=== PATIENT | female | born 1975 | race Caucasian/White ===

== ENCOUNTER → 2019-09-10 09:03 | Outpatient (BNVA) | payer OTHER, SELFPAY | PROVIDERS: PCP Nurse Practitioner Family; Referring Provider Nurse Practitioner Family; Visit Provider Urology | DX: R31.0 Gross hematuria (principal); N30.20 Other chronic cystitis without hematuria | CPT/HCPCS: 81001; 87086 ==

== ENCOUNTER 2019-12-25 08:09 | Outpatient (CLI) | payer OTHER, SELFPAY ==
[2019-12-25 08:55] LABS: Basophils % 0.6 %; Eosinophils # 0.1 10^3/uL (0.0-0.8); Eosinophils % 1.8 %; Hematocrit 42.6 % (37.0-47.0); Hemoglobin 13.7 g/dL (11.5-15.3); Lymphocytes # 2.1 10^3/uL (0.8-4.8); Lymphocytes % 30.9 %; Mean Corpuscular HGB Conc 32.2 g/dL (30.0-36.0); Mean Corpuscular Hemoglobin 28.1 pg (28.0-34.0); Mean Corpuscular Volume 87.5 fL (81-99); Mean Platelet Volume 10.3 fL (7.4-10.4); Monocytes # 0.4 10^3/uL (0.2-0.9); Monocytes % 5.7 %; Neutrophils # 4.1 10^3/uL (1.8-7.7); Neutrophils % 60.4 %; Nucleated Red Blood Cells % 0 %; Platelet Count 251 10^3/cmm (130-400); Red Blood Count 4.87 10^6/uL (4.1-5.3); Red Cell Distribution Width 13.6 % (12.1-15.1); White Blood Count 6.9 10^3/uL (4.0-10.0)
[2019-12-25 09:16] LABS: Alanine Aminotransferase 25 U/L (0-33); Albumin Level 4.4 g/dL (3.5-5.2); Alkaline Phosphatase 115 IU/L (35-105); Anion Gap 17.4 (5-19); Aspartate Amino Transferase 20 U/L (0-32); Blood Urea Nitrogen 12 mg/dL (6-20); Calcium 9.6 mg/dL (8.5-10.5); Carbon Dioxide 22 mmol/L (22-29); Chloride 105 mmol/L (98-107); Globulin 3.6 g/dL (1.3-4.6); Glomerular Filtration Rate 60.8 mL/min (90-130); Glucose 102 mg/dL (65-115); Osmolality Calculated 286 mOsm/kg (285-295); Potassium 4.4 mmol/L (3.5-5.1); Sodium 140 mmol/L (136-145); Thyroid Stimulating Hormone 1.43 uIU/mL (0.27-4.20); Total Bilirubin 0.2 mg/dL (0.15-1.2)
== END 2019-12-25 08:10 | disposition home or self-care (01) ==
LOC: ONCMED 08:12
PROVIDERS: PCP Nurse Practitioner Family; Visit Provider Internal Medicine Medical Oncology
DX: C50.512 Malignant neoplasm of lower-outer quadrant of left female breast (principal); Z17.0 Estrogen receptor positive status [ER+]; E03.9 Hypothyroidism, unspecified
CPT/HCPCS: 36415; 80053; 84443; 85025

== ENCOUNTER 2019-12-28 08:40 | Outpatient (CLI) | payer OTHER, SELFPAY ==
--- NOTE | 2019-12-28 19:47 | ONC FU_ITS ---
Dr. He Patient Follow-Up Note Patient: Priyanka Cali Unit #: [id number]: 1975 Dicatated By: Christopher He M.D.Date of Visit:Dec 28, 2019 Onc Med Follow-up/Prog Note Chief Complaint: Breast cancer. History of Present Illness: This is a 44 year-old woman with multifocal grade 3 invasive ductal carcinoma of the left breast, stage IIA (pT2, pN0, M0), ER/OK positive and HER-2/parish negative. In July 2018 she became aware of a lump in the lateral aspect of her left breast. She did have it evaluated immediately due to a strong family history of breast cancer, including her mother and maternal grandmother. Her diagnostic mammogram on 07/29/2018 showed only a very subtle suggestion of a 12 mm nodule immediately in the area of the palpable nodule. A nodule in the midportion of the right breast superiorly appeared stable compared to previous study from 2011. Ultrasound of the left breast showed an irregular hypoechoic mass at the 4:00 position 6 cm from the nipple. It measured 22 mm. There were no suspicious or enlarged lymph nodes noted in the left axilla. Ultrasound guided needle biopsy of the left breast mass on 08/14/2018 showed grade 3 invasive ductal carcinoma. The tumor was found to be are positive at 92% and. Positive at 41%. There was negative for overexpression of HER-2/parish, 1+ by IHC. She then had further evaluation with breast MRI. It reportedly showed an additional enhancing mass measuring 0.8 cm located 3.8 cm posterior to the known lesion at 4:00. There was additional finding of the right breast open up her inner quadrant mass with a small satellite lesion, also felt to be suspicious. A second ultrasound-guided biopsy of the left breast on 09/03/2018 showed invasive ductal carcinoma with focal micropapillary features, grade 1. It was ER positive at 99% and OK positive at 95%. It also was negative for overexpression of HER-2/parish, 1+ by IHC. Biopsy of the right breast mass showed fibroadenoma. On 09/08/2018 she underwent bilateral mastectomy with left axillary sentinel lymph node biopsy and immediate bilateral breast reconstruction. Pathology showed a 2.2 x 1.5 x 1.3 cm poorly defined mass located in the lower outer quadrant of the left breast. The mass was noted to contain a metal biopsy clip. Approximately 2.5 cm deep to the mass was a 2.5 x 1.5 x 0.5 cm area of dense fibrous tissue which contained a possible previous biopsy cavity. The 2.2 cm mass showed grade 3 invasive ductal carcinoma. The second biopsy site showed no residual invasive carcinoma. The left axillary sentinel lymph node biopsy shows no involvement in 4 lymph nodes. The right breast showed evidence of previous biopsy site with residual fibroadenoma, but no evidence of in situ or invasive carcinoma. I had seen her initially on 09/26/2018 regard to recommendations for adjuvant therapy. She then had further evaluation with Oncotype DX. It showed a recurrence score of 16, low risk, with a predicted risk of distant recurrence of 4% at 9 years with adjuvant hormonal therapy. The absolute benefit with adjuvant chemotherapy was predicted to be less than 1% based on results of the TAILORx trial. As such, adjuvant chemotherapy was not recommended. At that time I reviewed the options for adjuvant hormonal therapy including tamoxifen versus an aromatase inhibitor in combination with an LHRH analog. She opted for the latter. She then began treatment with Zoladex 3.6 mg monthly on 12/12/2018, and she started anastrozole 1 mg daily on 01/05/2019. She received a second injection of Zoladex on 01/12/2019. During this time she had consulted with her qc manager and in February 2019 she underwent hysterectomy with bilateral salpingo-oophorectomy. She underwent revision of her breast scar in March. At her follow-up visit on 03/17/2019 I did have her start venlafaxine for hot flashes. She continued her adjuvant hormonal therapy with anastrozole 1 mg daily. She is seen for a scheduled visit. Since her last visit she has seen a line maintenance supervisor about the skin eruption in her facial area, and it was apparently found to be caused by her blood pressure medication (chlorthalidone). It has improved significantly since she has been off the medication. She has been feeling good generally. She has good energy and activity tolerance. She is working full-time. Her ECOG score is 0. She has not had fever. She has had more sweating, but her hot flashes have improved. She has allergy related sinus symptoms and those are being managed adequately with [id number] medication. She does have some associated cough. She has no shortness of breath or chest pain. She has no GI or complaints. She says her hands have been aching a little. She has no other joint or bone pain. She has no focal neurologic symptoms. Medications: Anastrozole 1 Tablet (of 1 mg) Oral daily, Chlorthalidone 1 Tablet (of 25 mg) Oral daily, Levothyroxine Sodium 1 Tablet (of 88 mcg) Oral daily, metFORMIN HCl 1 Tablet (of 500 mg) Oral daily, Nitrofurantoin Monohyd Macro 1 Capsule (of 100 mg) Oral b.i.d., Singulair 1 Tablet (of 10 mg) Oral daily, Venlafaxine HCl ER 1 Capsule (of 150 mg) Capsule SR 24 HR Oral daily Allergies: Dicloxacillin Sodium and egg yolk. Review of Systems: Constitutional - She is feeling good. Her energy is good and she has normal activit. She is working full-time. Her appetite is good and her weight is up about 20 pounds. No fevers. Her hot flashes are improved but she continues to have sweating episodes. ECOG score is 0, ENMT - She has sinus congestion/drainage. No mouth sores. No sore throat or difficulty swallowing, Hematologic/Lymphatic - No abnormal bruising or bleeding, Respiratory - No shortness of breath. No cough. No pleuritic pain or hemoptysis, Cardiovascular - No angina pain. No palpitations, Gastrointestinal - No nausea or vomiting. No heartburn or acid reflux. No diarrhea or constipation. No blood in the stool or black stools, Genitourinary (F) - No dysuria or hematuria. No urinary frequency. No urgency or incontinence, Musculoskeletal - Her hands are a little bit achy. She has no other joint or bone pain, Integumentary - No skin complications, Neurologic - No headache or dizziness. No numbness or tingling. No other focal neurologic symptoms, Psychiatric - No anxiety or depression. No insomnia. Vital Signs: Performed on Dec 28, 2019 08:46 Height - 64.50 in Weight - 223.2 lbs (HIGH) BSA - 2.06 sq.m BMI - 37.72 (HIGH) Temperature - 97.2 F (LOW) Pulse - 87 /min Respiration - 18 /min BP - 133/96 mm(hg) O2 Sat - 97 % Pain - 0 Physical Examination: Constitutional - She looks good generally, Eyes - Sclerae nonicteric.Conjunctivae clear, ENMT - No lesions noted in the oral cavity, Hematologic/Lymphatic - No cervical, clavicular, or axillary adenopathy, Respiratory - Lungs are clear with good air movement bilaterally, Cardiovascular - Heart rhythm is regular. There is no murmur, gallop, or rub noted, Breasts - Her reconstruction incisions have healed. There are no chest wall lesions noted. There is no axillary adenopathy, Abdomen - Soft. Liver and spleen are not enlarged. There is no abdominal mass or ascites noted and there is no inguinal adenopathy, Extremities - No edema, Neurologic - No focal neurologic deficits noted. Lab/Imaging: CBC shows hemoglobin 13.7 g, white blood cell count 6900, and platelet count 251,000. Comprehensive metabolic profile is unremarkable. TSH is normal at 1.43 ???IU/mL. Impression: 1. Patient with multifocal grade 3 invasive ductal carcinoma of the left breast, stage IIA (pT2, pN0, M0), ER/OK positive and HER-2/parish negative. Her Oncotype DX was low risk with recurrence score 16. The absoulte benefit with adjuvant chemotherapy was predicted to be < 1%. 2. She underwent bilateral mastectomy with left axillary sentinel lymph node biopsy and immediate bilateral breast reconstruction on 09/08/2018. 3. She began adjuvant hormonal therapy with Zoladex in December, and she started anastrozole 1 mg daily on 01/05/2019. 4. She undewent hysterectomy with bilateral oophorectomy in February 2019. 5. She has a strong family history of breast cancer, but her BRCA testing was reportedly negative. Her other medical illnesses include: 6. Hypothyroidism. 7. Mild asthma, exercise-induced. She had developed significant hot flashes/sweating following her hysterectomy, but those symptoms have improved with venlafaxine. She has been tolerating the anastrozole with no significant adverse effects. Overall, she appears to be doing well clinically with no evidence of recurrence of the breast cancer. Plan: She continues adjuvant hormonal therapy with anastrozole 1 mg daily. I will see her again in 6 months. Signed By: Christopher He M.D. <<Signature on File>>
== END 2019-12-28 08:41 | disposition home or self-care (01) ==
LOC: ONCMED 08:41
PROVIDERS: PCP Nurse Practitioner Family; Visit Provider Internal Medicine Medical Oncology
DX: C50.512 Malignant neoplasm of lower-outer quadrant of left female breast (principal); Z17.0 Estrogen receptor positive status [ER+]; E03.9 Hypothyroidism, unspecified; J45.990 Exercise induced bronchospasm; Z90.13 Acquired absence of bilateral breasts and nipples; Z79.811 Long term (current) use of aromatase inhibitors; Z90.710 Acquired absence of both cervix and uterus
CPT/HCPCS: 99214

== ENCOUNTER → 2020-03-08 08:24 | Outpatient (BNVA) | payer OTHER, SELFPAY | PROVIDERS: PCP Nurse Practitioner Family; Visit Provider Urology | DX: N30.20 Other chronic cystitis without hematuria (principal) | CPT/HCPCS: 81001 ==

== ENCOUNTER 2020-06-27 15:25 | Outpatient (CLI) | payer OTHER, SELFPAY ==
[2020-06-27 16:06] LABS: Basophils # 0.1 10^3/uL (0.0-0.1); Basophils % 0.8 %; Eosinophils # 0.1 10^3/uL (0.0-0.8); Eosinophils % 1.1 %; Hematocrit 46.1 % (37.0-47.0); Hemoglobin 14.9 g/dL (11.5-15.3); Lymphocytes # 2.6 10^3/uL (0.8-4.8); Lymphocytes % 32.7 %; Mean Corpuscular HGB Conc 32.3 g/dL (30.0-36.0); Mean Corpuscular Hemoglobin 28.3 pg (28.0-34.0); Mean Corpuscular Volume 87.5 fL (81-99); Mean Platelet Volume 10.7 fL (7.4-10.4); Monocytes # 0.5 10^3/uL (0.2-0.9); Monocytes % 5.8 %; Neutrophils # 4.67 10^3/uL (1.8-7.7); Neutrophils % 59.3 %; Nucleated Red Blood Cells % 0 %; Platelet Count 307 10^3/cmm (130-400); Red Blood Count 5.27 10^6/uL (4.1-5.3); Red Cell Distribution Width 13.3 % (12.1-15.1); White Blood Count 7.9 10^3/uL (4.0-10.0)
[2020-06-27 16:28] LABS: Alanine Aminotransferase 28 U/L (0-33); Albumin Level 4.8 g/dL (3.5-5.2); Alkaline Phosphatase 127 IU/L (35-105); Anion Gap 19.1 (5-19); Aspartate Amino Transferase 23 U/L (0-32); Blood Urea Nitrogen 19 mg/dL (6-20); Calcium 10.1 mg/dL (8.5-10.5); Carbon Dioxide 24 mmol/L (22-29); Chloride 98 mmol/L (98-107); Globulin 3.4 g/dL (1.3-4.6); Glucose 87 mg/dL (65-115); Osmolality Calculated 286 mOsm/kg (285-295); Potassium 4.1 mmol/L (3.5-5.1); Sodium 137 mmol/L (136-145); Total Bilirubin 0.3 mg/dL (0.15-1.2); Total Protein 8.2 g/dL (6.6-8.7)
== END 2020-06-27 15:26 | disposition home or self-care (01) ==
LOC: ONCMED 15:27
PROVIDERS: PCP Nurse Practitioner Family; Visit Provider Internal Medicine Medical Oncology
DX: C50.512 Malignant neoplasm of lower-outer quadrant of left female breast (principal); Z17.0 Estrogen receptor positive status [ER+]
CPT/HCPCS: 36415; 80053; 85025

== ENCOUNTER 2020-06-28 06:16 | Outpatient (CLI) | payer OTHER, SELFPAY ==
--- NOTE | 2020-07-02 09:58 | ONC FU_ITS ---
Dr. He Patient Follow-Up Note Patient: Priyanka Cali Unit #: [id number]: 1975 Dicatated By: Christopher He M.D.Date of Visit:Jun 28, 2020 Onc Med Follow-up/Prog Note Chief Complaint: Breast cancer. History of Present Illness: This is a 45 year-old woman with multifocal grade 3 invasive ductal carcinoma of the left breast, stage IIA (pT2, pN0, M0), ER/NJ positive and HER-2/parish negative. In July 2018 she became aware of a lump in the lateral aspect of her left breast. She did have it evaluated immediately due to a strong family history of breast cancer, including her mother and maternal grandmother. Her diagnostic mammogram on 07/29/2018 showed only a very subtle suggestion of a 12 mm nodule immediately in the area of the palpable nodule. A nodule in the midportion of the right breast superiorly appeared stable compared to previous study from 2011. Ultrasound of the left breast showed an irregular hypoechoic mass at the 4:00 position 6 cm from the nipple. It measured 22 mm. There were no suspicious or enlarged lymph nodes noted in the left axilla. Ultrasound guided needle biopsy of the left breast mass on 08/14/2018 showed grade 3 invasive ductal carcinoma. The tumor was found to be are positive at 92% and. Positive at 41%. There was negative for overexpression of HER-2/parish, 1+ by IHC. She then had further evaluation with breast MRI. It reportedly showed an additional enhancing mass measuring 0.8 cm located 3.8 cm posterior to the known lesion at 4:00. There was additional finding of the right breast open up her inner quadrant mass with a small satellite lesion, also felt to be suspicious. A second ultrasound-guided biopsy of the left breast on 09/03/2018 showed invasive ductal carcinoma with focal micropapillary features, grade 1. It was ER positive at 99% and NJ positive at 95%. It also was negative for overexpression of HER-2/parish, 1+ by IHC. Biopsy of the right breast mass showed fibroadenoma. On 09/08/2018 she underwent bilateral mastectomy with left axillary sentinel lymph node biopsy and immediate bilateral breast reconstruction. Pathology showed a 2.2 x 1.5 x 1.3 cm poorly defined mass located in the lower outer quadrant of the left breast. The mass was noted to contain a metal biopsy clip. Approximately 2.5 cm deep to the mass was a 2.5 x 1.5 x 0.5 cm area of dense fibrous tissue which contained a possible previous biopsy cavity. The 2.2 cm mass showed grade 3 invasive ductal carcinoma. The second biopsy site showed no residual invasive carcinoma. The left axillary sentinel lymph node biopsy shows no involvement in 4 lymph nodes. The right breast showed evidence of previous biopsy site with residual fibroadenoma, but no evidence of in situ or invasive carcinoma. I had seen her initially on 09/26/2018 regard to recommendations for adjuvant therapy. She then had further evaluation with Oncotype DX. It showed a recurrence score of 16, low risk, with a predicted risk of distant recurrence of 4% at 9 years with adjuvant hormonal therapy. The absolute benefit with adjuvant chemotherapy was predicted to be less than 1% based on results of the TAILORx trial. As such, adjuvant chemotherapy was not recommended. At that time I reviewed the options for adjuvant hormonal therapy including tamoxifen versus an aromatase inhibitor in combination with an LHRH analog. She opted for the latter. She then began treatment with Zoladex 3.6 mg monthly on 12/12/2018, and she started anastrozole 1 mg daily on 01/05/2019. She received a second injection of Zoladex on 01/12/2019. During this time she had consulted with her head of partner development and in February 2019 she underwent hysterectomy with bilateral salpingo-oophorectomy. She underwent revision of her breast scar in March. At her follow-up visit on 03/17/2019 I did have her start venlafaxine for hot flashes. She continued her adjuvant hormonal therapy with anastrozole 1 mg daily. She is seen for a scheduled visit. She has not been feeling all that good generally, but last week she did start on a diet and since then she has felt much better. Her energy has sometimes been low, but she still has normal activity. She has good appetite. She has not had fever. During the past month her hot flashes for some reason have gotten worse. She has no shortness of breath, cough, or chest pain. Her acid reflux symptoms have improved on the new diet. She still has some postprandial diarrhea. She has no complaints. She has no significant joint or bone pain. She does not complain of headache or dizziness. She says her feet tingle when she first gets up and she also complains that her feet tend to stay cold. Medications: Anastrozole 1 Tablet (of 1 mg) Oral daily, Chlorthalidone 1 Tablet (of 25 mg) Oral daily, Levothyroxine Sodium 1 Tablet (of 88 mcg) Oral daily, metFORMIN HCl 1 Tablet (of 500 mg) Oral daily, Nitrofurantoin Monohyd Macro 1 Capsule (of 100 mg) Oral b.i.d., Singulair 1 Tablet (of 10 mg) Oral daily, Venlafaxine HCl ER 1 Capsule (of 150 mg) Capsule SR 24 HR Oral daily Allergies: Dicloxacillin Sodium and egg yolk. Review of Systems: Constitutional - She says her energy is normal to low. She has normal activity. She has good appetite. She started a diet last week and since then she has felt somewhat better generally. No fever or night sweats. During the past month her hot flashes have gotten worse. ECOG score is 0, ENMT - She was having allergy related sinus symptoms, but lately that has been better. No mouth sores. No sore throat or difficulty swallowing, Hematologic/Lymphatic - She has easy bruising, Respiratory - No shortness of breath. No cough. No pleuritic pain or hemoptysis, Cardiovascular - No angina pain. No palpitations, Gastrointestinal - No nausea or vomiting. She was having a lot of heartburn, but that has improved with the diet. She tends to have postprandial diarrhea. No blood in the stool or black stools, Genitourinary (F) - No dysuria or hematuria. No urinary frequency. No urgency or incontinence, Musculoskeletal - No joint or bone pain, Integumentary - No skin rash, Neurologic - No headache or dizziness. Her feet tingle when she first gets up out of bed. No other focal neurologic symptoms, Psychiatric - No anxiety or depression. No insomnia. Vital Signs: Performed on Jun 28, 2020 09:27 Height - 64.50 in Weight - 214.0 lbs (LOW) BSA - 2.02 sq.m BMI - 36.17 (HIGH) Temperature - 95.3 F (LOW) Pulse - 97 /min Respiration - 16 /min BP - 109/93 mm(hg) O2 Sat - 97 % Pain - 0 Physical Examination: Constitutional - She looks good generally, Eyes - Sclerae nonicteric. Conjunctivae clear, ENMT - No lesions noted in the oral cavity, Hematologic/Lymphatic - No cervical, clavicular, or axillary adenopathy, Respiratory - Lungs are clear with good air movement bilaterally, Cardiovascular - Heart rhythm is regular. There is no murmur, gallop, or rub noted, Abdomen - Soft. Liver and spleen are not enlarged. There is no abdominal mass or ascites noted and there is no inguinal adenopathy, Extremities - No edema, Neurologic - No focal neurologic deficits noted. Lab/Imaging: CBC shows hemoglobin 14.9 g, white blood cell count 7900, and platelet count 307,000. Comprehensive metabolic profile is unremarkable. Impression: 1. Patient with multifocal grade 3 invasive ductal carcinoma of the left breast, stage IIA (pT2, pN0, M0), ER/NJ positive and HER-2/parish negative. Her Oncotype DX was low risk with recurrence score 16. The absoulte benefit with adjuvant chemotherapy was predicted to be < 1%. 2. She underwent bilateral mastectomy with left axillary sentinel lymph node biopsy and immediate bilateral breast reconstruction on 09/08/2018. 3. She began adjuvant hormonal therapy with Zoladex in December, and she started anastrozole 1 mg daily on 01/05/2019. 4. She undewent hysterectomy with bilateral oophorectomy in February 2019. 5. She has a strong family history of breast cancer, but her BRCA testing was reportedly negative. Her other medical illnesses include: 6. Hypothyroidism. 7. Mild asthma, exercise-induced. She had developed significant hot flashes/sweating following her hysterectomy, but those symptoms had improved with venlafaxine. For some reason, hot flashes have recently worsened again. She has otherwise been tolerating the anastrozole well, and overall she has been doing well clinically. Plan: She will continue adjuvant hormonal therapy with anastrozole 1 mg daily. For now she will continue the venlafaxine at the same dosage. I will see her again in 6 months. Signed By: Christohper He M.D. <<Signature on File>>
== END 2020-06-28 06:17 | disposition home or self-care (01) ==
LOC: ONCMED 06:18
PROVIDERS: PCP Nurse Practitioner Family; Visit Provider Internal Medicine Medical Oncology
DX: C50.512 Malignant neoplasm of lower-outer quadrant of left female breast (principal); Z17.0 Estrogen receptor positive status [ER+]; Z90.13 Acquired absence of bilateral breasts and nipples; Z79.811 Long term (current) use of aromatase inhibitors; E03.9 Hypothyroidism, unspecified; J45.909 Unspecified asthma, uncomplicated; Z80.3 Family history of malignant neoplasm of breast
CPT/HCPCS: 99214

== ENCOUNTER → 2020-09-17 12:10 | Outpatient (BNVA) | payer OTHER, SELFPAY | PROVIDERS: PCP Nurse Practitioner Family; Visit Provider Surgery | DX: Z01.812 Encounter for preprocedural laboratory examination (principal); Z20.822 Contact with and (suspected) exposure to COVID-19 | CPT/HCPCS: 87635 ==

== ENCOUNTER 2020-09-22 08:35 | Day surgery (SDC) | payer OTHER, SELFPAY ==
[2020-09-20 09:56] VITALS: BMI 36.0
[2020-09-22 08:51] VITALS: BP 129/101; PULSE 102; RESP 18; TEMP 36.1; O2SAT 99
[2020-09-22] MEDS: sodium chloride 0.9% 1,000 ML 30 ML IV (09:09)
[2020-09-22 09:15] LABS: Glucose Point of Care 101 mg/dL (70-110)
--- NOTE | 2020-09-22 09:17 | ANES.PREANE2 ---
Pre-Anesthetic Assessment Pre-Anesthetic Assessment: Height/Weight: Height 1.63 m Weight 95.254 kg Temp Pulse Resp BP Pulse Ox 97 F L 102 H 18 129/101 99 09/22/20 08:51 09/22/20 08:51 09/22/20 08:51 09/22/20 08:51 09/22/20 08:51 Preop Diagnosis: abdominal pain, diarrhea Proposed Procedure: Operation Date: 09/22/20 09:30 Proposed Procedures p Colonoscopy 09396 K80.10(Not Applicable) - Pepe Hopkins MD Familial anesthetic complications: nausea, itchy following general anesthetic Was Beta Justine taken within 24 hours: N/A Was Clonidine taken within 24 hours: N/A Last intake: Intake Last Liquid Date 09/21/20 Last Liquid Time 22:00 Last Solid Date 09/20/20 Last Solid Time 20:00 Social: Social History: No alcohol and No tobacco Exam: Pre-Anes Outpt Exam: alert, oriented x 3, clear to auscultation bilaterally and regular rate & rhythm Airway: Submandibular: WNL Cervical ROM: WNL MP: 1 Dentition: Full Pulmonary: Pulmonary: Asthma (exercise induced) CV/HEM: CV/HEM: HTN : : None reported Hepatic: Hepatic: Hepatitis (at 12 but resolved now) GI: GI: GERD (burping at night) Metabolic: Metabolic: Thyroid Musc/skel: Musc/skel: None reported Neuropsych: Neuropsych: VU (a couple times a year migraine usually stressed induced ) Anesthetic Plan: ASA status: 2 Anesthesia: MAC Risk of > 500 ml blood loss (7ml/kg in children): No Meds/Allergies Current Medications: Current Medications Generic Name Dose Route Start Last Admin Trade Name Freq PRN Reason Stop Dose Admin Sodium Chloride 1,000 mls @ 30 ml s/hr 09/22/20 08:45 09/22/20 09:09 Sodium Chloride 0.9% IV 09/23/20 08:44 30 mls/hr .Q24H JEREMIAH Administration PFSH Anesthesia PFSH: Medical History Chronic cystitis Gross hematuria Hx of breast cancer Surgical History H/O: hysterectomy S/P mastectomy, bilateral Family History Mother Cancer Breast Father Cancer Breast, Leukemia, colon, Hypertension Social History Smoking and tobacco status: never smoked Alcohol intake: current Adopted: No Caregiver/support person: No Lives independently: Yes Marital status: History of recent travel: No Current gender identity: Female Data Anesthesia Other Labs: Laboratory Results - last 48 hr 09/22/20 09:09 POC Glucose 101 Cardiac Studies: No Data to Display
--- NOTE | 2020-09-22 10:00 | ANE.PACU2 ---
Inpatient post-anesthesia follow up: Airway intact: Yes Vital signs: Temperature 97 F Pulse Rate 102 Respiratory Rate 18 Blood Pressure 129/101 Pulse Oximetry 99 Oxygen Delivery Me thod Room Air Oxygen Flow Rate Fraction of Inspir ed Oxygen Hydration adequate: Yes Nausea and vomiting: No Pain level: 1 Mental status: Baseline
[2020-09-22 10:01] VITALS: BP 139/82; PULSE 85; RESP 16; TEMP 36.2; O2SAT 97
--- NOTE | 2020-09-22 10:05 | W.PM.OPSUD ---
Surgery/Procedure H&P Update DATE OF PROCEDURE: September 22, 2020 DATE H&P PERFORMED: 09/13/20 H&P UPDATE INFORMATION: No changes to prior documentation PREOP DIAGNOSIS: abdominal pain, diarrhea, family history of colon polyps PLANNED PROCEDURE: Operation Date: 09/22/20 09:30 Proposed Procedures p Colonoscopy 40835 K80.10(Not Applicable) - Pepe Hopkins MD
--- NOTE | 2020-09-22 14:06 | ANE.PACU2 ---
Inpatient post-anesthesia follow up: Airway intact: Yes Vital signs: Temperature 97.1 F Pulse Rate 85 Respiratory Rate 16 Blood Pressure 139/82 Pulse Oximetry 97 Oxygen Delivery Me thod Room Air Oxygen Flow Rate Fraction of Inspir ed Oxygen Hydration adequate: Yes Nausea and vomiting: No Pain level: 1 Mental status: Baseline
== END 2020-09-22 10:28 | disposition home or self-care (01) ==
PROVIDERS: PCP Nurse Practitioner Family; Visit Provider Surgery
PROC: 0DJD8ZZ Inspection of Lower Intestinal Tract, Via Natural or Artificial Opening Endoscopic (ICD-10-PCS; CPT 45378; principal; 2020-09-22 09:30)
DX: R19.7 Diarrhea, unspecified (principal); R10.32 Left lower quadrant pain; K57.30 Diverticulosis of large intestine without perforation or abscess without bleeding; K64.8 Other hemorrhoids; I10 Essential (primary) hypertension; K21.9 Gastro-esophageal reflux disease without esophagitis; Z85.3 Personal history of malignant neoplasm of breast
CPT/HCPCS: 12345; 36416; 45378; 82962; 96360; J2704; J7030

== ENCOUNTER 2020-11-15 15:33 | Emergency (ER) | payer OTHER, SELFPAY ==
[2020-11-15 15:36] VITALS: BP 123/93; PULSE 90; RESP 17; TEMP 36.6; O2SAT 99; BMI 36.1
--- NOTE | 2020-11-15 15:50 | ED_ITS ---
HPI - Abdominal Pain General: Chief Complaint: Abdominal Pain Stated Complaint: Stomach Pains/Nausea Time Seen by Provider: 11/15/20 15:36 History of Present Illness: HPI narrative: 45-year-old female presents emergency room with complaint of abdominal discomfort.On the left side. 2 months ago she had a EGD and colonoscopy for abdominal pain she does have early diverticulosis but no evidence of diverticuli. She has had recurrent chronic cystitis as well. Patient denies any recent diarrhea hematochezia no melena or hematemesis. She not had any fever sweats or chills no dysuria urgency or frequency. MD elicited complaint: abdominal pain Pertinent past history: none Onset (ago): hour(s) Pain Consistency: constant Location: LUQ Severity: moderate Quality: cramping Radiation: none Migration to: no migration Exacerbating factors: nothing Relieving factors: nothing Associated Symptoms: Reports GI cramping; Denies anorexia, belching, bloating, change in bowel habits, change in stool character, chills, coffee ground emesis, constipation, diarrhea, dyspepsia, dysuria, excessive flatus, fever(s), heartburn, hematochezia, hematuria, hematemesis, fecal incontinence, loose stools, melena, nausea, poor appetite, syncope and vomiting Review of Systems Const: Denies: fever(s) or chills ENMT: Denies: throat pain, ear or mastoid pain, nasal discharge or nasal congestion Card: Denies: syncope Resp: Denies: dyspnea, productive cough or non-productive cough GI: Reports: GI cramping; Denies: nausea, vomiting, hematemesis, coffee ground emesis, heartburn, diarrhea, constipation, bloating, belching, excessive flatus, fecal incontinence, change in bowel habits, change in stool character, hematochezia or melena : Denies: dysuria or hematuria Skin/Breast: Denies: rash or pruritus PFSH ED PFSH: Medical History (Updated 11/15/20 @ 17:46 by Walt Escobar DO) Chronic cystitis Gross hematuria Hx of breast cancer Surgical History H/O: hysterectomy S/P mastectomy, bilateral Family History Mother Cancer Breast Father Cancer Breast, Leukemia, colon, Hypertension Social History Smoking and tobacco status: never smoked Alcohol intake: current Adopted: No Caregiver/support person: No Lives independently: Yes Marital status: History of recent travel: No Current gender identity: Female Physical Exam Const: COMMON NORMALS: no acute distress GENERAL APPEARANCE: cooperative and comfortable ORIENTATION/CONSCIOUSNESS: Yes awake, Yes oriented to person, Yes oriented to place and Yes oriented to time HENMT: COMMON NORMALS: normocephalic, atraumatic and hearing grossly normal bilaterally HEAD & SCALP: normocephalic and atraumatic Neck/C-Spine: COMMON NORMALS: no JVD Resp: COMMON NORMALS: normal respiratory effort, No retractions, No use of accessory muscles and clear to auscultation bilaterally AUSCULTATION: clear to auscultation bilaterally Cardio: COMMON NORMALS: no JVD, regular rate, regular rhythm and No murmurs present (Cardio) RATE: regular rate RHYTHM: regular rhythm GI: COMMON NORMALS: Soft to palpation and No hepatosplenomegaly present AUSCULTATION: Yes normoactive bowel sounds PALPATION: Yes Soft to palpation, No Tenderness to palpation present (GI), No Guarding due to palpation present (GI) and Yes No hepatosplenomegaly present Extremity: COMMON NORMALS: normal to inspection, capillary refill normal, no clubbing, cyanosis or edema, no calf tenderness and no pedal edema Neuro: SENSORIUM/ORIENTATION: Yes oriented to person, Yes oriented to place and Yes oriented to time Skin: COMMON NORMALS: no rashes or lesions noted GENERAL SKIN EXAM: no rashes or lesions noted Course Vital Signs: Vital signs: Vital Signs Temperature 97.9 F 11/15/20 15:36 Pulse Rate 82 11/15/20 18:09 Respiratory Rate 16 11/15/20 18:09 Blood Pressure 114/78 11/15/20 18:09 Pulse Oximetry 99 11/15/20 18:09 MDM - Abdominal Pain MDM Narrative: Medical decision making narrative: Based on exam we will go ahead and treat her for diverticulitis. Cipro and Flagyl pain medications antiemetics recheck if not improving Lab Data: Labs: Lab Results 11/15/20 11/15/20 11/15/20 Range/Units 16:18 16:18 16:18 WBC 8.3 (4.0-10.0) 10^3/ uL RBC 4.61 (4.1-5.3) 10^6/u L Hgb 13.2 (11.5-15.3) g/dL Hct 41.3 (37.0-47.0) % MCV 89.6 (81-99) fL MCH 28.6 (28.0-34.0) pg MCHC 32.0 (30.0-36.0) g/dL RDW 13.7 (12.1-15.1) % Plt Count 272 (130-400) 10^3/c mm MPV 10.3 (7.4-10.4) fL Neut % (Auto) 54.9 % Lymph % (Auto) 37.3 % [place] % (Auto) 5.3 % Eos % (Auto) 1.2 % Baso % (Auto) 0.7 % Neut # (Auto) 4.55 (1.8-7.7) 10^3/u L Lymph # (Auto) 3.1 (0.8-4.8) 10^3/u L [place] # (Auto) 0.4 (0.2-0.9) 10^3/u L Eos # (Auto) 0.1 (0.0-0.8) 10^3/u L Baso # (Auto) 0.1 (0.0-0.1) 10^3/u L Nucleated RBC % (a uto) 0 % Nucleated RBCs # 0.0 /100WBC Sodium 141 (136-145) mmol/L Potassium 4.1 (3.5-5.1) mmol/L Chloride 103 (98-107) mmol/L Carbon Dioxide 26 (22-29) mmol/L Anion Gap 16.1 (5-19) BUN 18 (6-20) mg/dL Creatinine 1.3 H (0.5-0.9) mg/dL GFR Calculation 44.7 L (90-130) mL/min Glucose 85 (65-115) mg/dL Calculated Osmolal ity 293 (285-295) mOsm/k g Calcium 9.0 (8.5-10.5) mg/dL Total Bilirubin 0.2 (0.15-1.2) mg/dL AST 18 (0-32) U/L ALT 21 (0-33) U/L Alkaline Phosphata se 110 H (35-105) IU/L Total Protein 6.9 (6.6-8.7) g/dL Albumin 4.2 (3.5-5.2) g/dL Globulin 2.7 (1.3-4.6) g/dL Lipase 42 (13-60) U/L Urine Color Yellow (Yellow) Urine Appearance Clear (CLEAR) Urine pH 5 (5-7) Ur Specific Gravit y 1.020 (1.005-1.030) Urine Protein Neg (Negative) Urine Glucose (UA) Norm (Normal) Urine Ketones Negative (Negative) Urine Blood Neg (Negative) Urine Nitrate Negative (Negative) Urine Bilirubin Neg (Negative) Urine Urobilinogen Norm (Negative) mg/dL Ur Leukocyte Ana ase Negative (Negative) Discharge Plan Discharge Patient Disposition: Home Clinical Impression: Diverticulitis Condition: Stable Prescriptions: New hydrocodone-acetaminophen 5-325 mg tablet 1 tab PO Q6H PRN (Reason: pain) Qty: 15 RF: 0 Zofran 4 mg tablet 4 mg PO Q6H PRN (Reason: nausea and vomiting) Qty: 20 RF: 0 ciprofloxacin HCl 500 mg tablet 500 mg PO BID Qty: 20 RF: 0 Flagyl 500 mg tablet 500 mg PO BID 7 Days Qty: 14 RF: 0 No Action anastrozole 1 mg tablet 1 mg PO QAM RF: 0 levothyroxine 88 mcg tablet 88 mcg PO QAM RF: 0 spironolactone 100 mg tablet 100 mg PO QAM RF: 0 venlafaxine 150 mg capsule,extended release 24hr 150 mg PO QAM RF: 0 Aleve 220 mg Tablet 440 mg PO PRN RF: 0 Discharge Orders: Discharge ED (Routine); Ordered 11/15/20 Ordered By: Walt Escobar Referrals: Surekha Arauz FNP [Primary Care Provider] - Patient Instructions: Opioid Safety Coding Level of Care Code ED [employer] Exam Comprehensive
--- NOTE | 2020-11-15 15:56 | PC.PHAR ---
pt states she hasnt taken metformin for a month-ext med history shows last filled on 09/06/20 90d/s
[2020-11-15 16:25] LABS: Basophils # 0.1 10^3/uL (0.0-0.1); Basophils % 0.7 %; Eosinophils # 0.1 10^3/uL (0.0-0.8); Eosinophils % 1.2 %; Hematocrit 41.3 % (37.0-47.0); Hemoglobin 13.2 g/dL (11.5-15.3); Lymphocytes # 3.1 10^3/uL (0.8-4.8); Lymphocytes % 37.3 %; Mean Corpuscular Hemoglobin 28.6 pg (28.0-34.0); Mean Corpuscular Volume 89.6 fL (81-99); Mean Platelet Volume 10.3 fL (7.4-10.4); Monocytes # 0.4 10^3/uL (0.2-0.9); Monocytes % 5.3 %; Neutrophils # 4.55 10^3/uL (1.8-7.7); Neutrophils % 54.9 %; Nucleated Red Blood Cells % 0 %; Platelet Count 272 10^3/cmm (130-400); Red Blood Count 4.61 10^6/uL (4.1-5.3); Red Cell Distribution Width 13.7 % (12.1-15.1); White Blood Count 8.3 10^3/uL (4.0-10.0)
[2020-11-15 16:34] LABS: Add Urine Microscopic? NO; Charge for UA Resulting for Rev
[2020-11-15 16:38] LABS: Urine Appearance Clear (CLEAR); Urine Color Yellow (Yellow)
[2020-11-15 16:39] LABS: Bilirubin Urine Neg (Negative); Blood Urine Neg (Negative); Glucose Urine UA Norm (Normal); Ketones Urine Negative (Negative); Leukocyte Esterase Urine Negative (Negative); Nitrate Urine Negative (Negative); Protein Urine Neg (Negative); Urobilinogen Urine Norm (Negative); pH Urine 5 (5-7)
[2020-11-15 17:24] LABS: Alanine Aminotransferase 21 U/L (0-33); Albumin Level 4.2 g/dL (3.5-5.2); Alkaline Phosphatase 110 IU/L (35-105); Anion Gap 16.1 (5-19); Aspartate Amino Transferase 18 U/L (0-32); Blood Urea Nitrogen 18 mg/dL (6-20); Carbon Dioxide 26 mmol/L (22-29); Chloride 103 mmol/L (98-107); Globulin 2.7 g/dL (1.3-4.6); Glomerular Filtration Rate 44.7 mL/min (90-130); Glucose 85 mg/dL (65-115); Lipase 42 U/L (13-60); Osmolality Calculated 293 mOsm/kg (285-295); Potassium 4.1 mmol/L (3.5-5.1); Sodium 141 mmol/L (136-145); Total Bilirubin 0.2 mg/dL (0.15-1.2); Total Protein 6.9 g/dL (6.6-8.7)
[2020-11-15 18:09] VITALS: BP 114/78; PULSE 82; RESP 16; O2SAT 99
== END 2020-11-15 18:10 | disposition home or self-care (01) ==
PROVIDERS: Physician Assistant; Emergency Provider Family Medicine; PCP Nurse Practitioner Family
DX: K57.92 Diverticulitis of intestine, part unspecified, without perforation or abscess without bleeding (principal); Z85.3 Personal history of malignant neoplasm of breast
CPT/HCPCS: 80053; 81003; 83690; 85025; 99282

== ENCOUNTER 2020-11-29 07:58 | Outpatient (CLI) | payer OTHER, SELFPAY ==
--- NOTE | 2020-11-29 08:08 | CT_ITS ---
WS: [id number] CT ABDOMEN PELVIS TECHNIQUE: Contrast-enhanced CT of the abdomen and pelvis with coronal and sagittal reformatted image s. CLINICAL INFORMATION: LLQ PAIN, LUQ PAIN COMPARISON: None. DLP: 863.[address] scans at [facility] use at least one of these dose optimization techniques: automat ed exposure control; mA and/or kV adjustment per patient size (includes targeted exams where dose is matched to clinical indication); or iterative reconstruction. FINDINGS: Diffuse fatty infiltration of the liver. Normal spleen. Small splenic cyst or hemangioma measuring 10 mm. Normal portal vein and splenic vein. Small esophageal hiatal hernia. Bilateral breast implants. Adrenal glands are normal. Normal gallbladder. Normal pancreas. Normal renal parenchymal enhancement. No hydronephrosis. Normal caliber abdominal aorta. Normal sigmoid colon. Normal appendix right lower quadrant. Tiny amount of fluid in the pelvis. Fat-c ontaining umbilical hernia. No abdominal or pelvic lymphadenopathy. No inguinal lymphadenopathy. Slig ht retrolisthesis L5 on S1. CT/CT abdomen pelvis w con* [id number] Impression: 1. Mild diffuse fatty infiltration of the liver. 2. Small amount of free fluid in the pelvis. 3. Normal sigmoid colon. 4. Normal appendix in the right lower quadrant. 5. Normal renal parenchymal enhancement. No hydronephrosis. 6. Small esophageal hiatal hernia.
[2020-11-29] MEDS: iohexol 300 mg/mL 50 mL Btl PO (08:44)
[2020-11-29] MEDS: iohexol 300 mg/mL 100 mL Btl IV (10:16)
== END 2020-11-29 07:59 | disposition home or self-care (01) ==
LOC: RADWPI 08:04
PROVIDERS: PCP Nurse Practitioner Family; Visit Provider Surgery
DX: R10.32 Left lower quadrant pain (principal); R10.12 Left upper quadrant pain; K76.0 Fatty (change of) liver, not elsewhere classified; K44.9 Diaphragmatic hernia without obstruction or gangrene
CPT/HCPCS: 74177; Q9967

== ENCOUNTER 2020-12-27 14:53 | Outpatient (CLI) | payer OTHER, SELFPAY ==
[2020-12-27 15:24] LABS: Basophils # 0.1 10^3/uL (0.0-0.1); Basophils % 0.8 %; Eosinophils # 0.1 10^3/uL (0.0-0.8); Eosinophils % 1.7 %; Hematocrit 43.4 % (37.0-47.0); Hemoglobin 14.1 g/dL (11.5-15.3); Lymphocytes % 36.8 %; Mean Corpuscular HGB Conc 32.5 g/dL (30.0-36.0); Mean Corpuscular Hemoglobin 28.8 pg (28.0-34.0); Mean Corpuscular Volume 88.6 fL (81-99); Mean Platelet Volume 10.7 fL (7.4-10.4); Monocytes # 0.5 10^3/uL (0.2-0.9); Monocytes % 5.9 %; Neutrophils # 4.48 10^3/uL (1.8-7.7); Neutrophils % 54.4 %; Nucleated Red Blood Cells % 0 %; Platelet Count 274 10^3/cmm (130-400); Red Cell Distribution Width 13.8 % (12.1-15.1); White Blood Count 8.2 10^3/uL (4.0-10.0)
[2020-12-27 16:04] LABS: Alanine Aminotransferase 17 U/L (0-33); Albumin Level 4.5 g/dL (3.5-5.2); Alkaline Phosphatase 121 IU/L (35-105); Anion Gap 15.7 (5-19); Aspartate Amino Transferase 18 U/L (0-32); Blood Urea Nitrogen 14 mg/dL (6-20); Calcium 9.2 mg/dL (8.5-10.5); Carbon Dioxide 23 mmol/L (22-29); Chloride 104 mmol/L (98-107); Globulin 2.9 g/dL (1.3-4.6); Glomerular Filtration Rate 54.2 mL/min (90-130); Glucose 132 mg/dL (65-115); Osmolality Calculated 290 mOsm/kg (285-295); Potassium 3.7 mmol/L (3.5-5.1); Sodium 139 mmol/L (136-145); Total Bilirubin 0.2 mg/dL (0.15-1.2); Total Protein 7.4 g/dL (6.6-8.7)
== END 2020-12-27 14:54 | disposition home or self-care (01) ==
LOC: ONCMED 14:55
PROVIDERS: PCP Nurse Practitioner Family; Visit Provider Internal Medicine Medical Oncology
DX: C50.512 Malignant neoplasm of lower-outer quadrant of left female breast (principal); Z17.0 Estrogen receptor positive status [ER+]
CPT/HCPCS: 80053; 85025

== ENCOUNTER 2020-12-28 08:05 | Outpatient (CLI) | payer OTHER, SELFPAY ==
[2020-12-28 15:56] LABS: Estmated Average Glucose 105; Hemoglobin A1C 5.3 % (4.0-6.0)
--- NOTE | 2021-01-01 08:54 | ONC FU_ITS ---
Dr. He Patient Follow-Up Note Patient: Priyanka Cali Unit #: [id number]: 1975 Dicatated By: Christopher He M.D.Date of Visit:Dec 28, 2020 Onc Med Follow-up/Prog Note Chief Complaint: Breast cancer. History of Present Illness: This is a 45 year-old woman with multifocal grade 3 invasive ductal carcinoma of the left breast, stage IIA (pT2, pN0, M0), ER/RI positive and HER-2/parish negative. In July 2018 she became aware of a lump in the lateral aspect of her left breast. She did have it evaluated immediately due to a strong family history of breast cancer, including her mother and maternal grandmother. Her diagnostic mammogram on 07/29/2018 showed only a very subtle suggestion of a 12 mm nodule immediately in the area of the palpable nodule. A nodule in the midportion of the right breast superiorly appeared stable compared to previous study from 2011. Ultrasound of the left breast showed an irregular hypoechoic mass at the 4:00 position 6 cm from the nipple. It measured 22 mm. There were no suspicious or enlarged lymph nodes noted in the left axilla. Ultrasound guided needle biopsy of the left breast mass on 08/14/2018 showed grade 3 invasive ductal carcinoma. The tumor was found to be are positive at 92% and. Positive at 41%. There was negative for overexpression of HER-2/parish, 1+ by IHC. She then had further evaluation with breast MRI. It reportedly showed an additional enhancing mass measuring 0.8 cm located 3.8 cm posterior to the known lesion at 4:00. There was additional finding of the right breast open up her inner quadrant mass with a small satellite lesion, also felt to be suspicious. A second ultrasound-guided biopsy of the left breast on 09/03/2018 showed invasive ductal carcinoma with focal micropapillary features, grade 1. It was ER positive at 99% and RI positive at 95%. It also was negative for overexpression of HER-2/parish, 1+ by IHC. Biopsy of the right breast mass showed fibroadenoma. On 09/08/2018 she underwent bilateral mastectomy with left axillary sentinel lymph node biopsy and immediate bilateral breast reconstruction. Pathology showed a 2.2 x 1.5 x 1.3 cm poorly defined mass located in the lower outer quadrant of the left breast. The mass was noted to contain a metal biopsy clip. Approximately 2.5 cm deep to the mass was a 2.5 x 1.5 x 0.5 cm area of dense fibrous tissue which contained a possible previous biopsy cavity. The 2.2 cm mass showed grade 3 invasive ductal carcinoma. The second biopsy site showed no residual invasive carcinoma. The left axillary sentinel lymph node biopsy shows no involvement in 4 lymph nodes. The right breast showed evidence of previous biopsy site with residual fibroadenoma, but no evidence of in situ or invasive carcinoma. I had seen her initially on 09/26/2018 regard to recommendations for adjuvant therapy. She then had further evaluation with Oncotype DX. It showed a recurrence score of 16, low risk, with a predicted risk of distant recurrence of 4% at 9 years with adjuvant hormonal therapy. The absolute benefit with adjuvant chemotherapy was predicted to be less than 1% based on results of the TAILORx trial. As such, adjuvant chemotherapy was not recommended. At that time I reviewed the options for adjuvant hormonal therapy including tamoxifen versus an aromatase inhibitor in combination with an LHRH analog. She opted for the latter. She then began treatment with Zoladex 3.6 mg monthly on 12/12/2018, and she started anastrozole 1 mg daily on 01/05/2019. She received a second injection of Zoladex on 01/12/2019. During this time she had consulted with her rubber tester and in February 2019 she underwent hysterectomy with bilateral salpingo-oophorectomy. She then underwent revision of her breast scar. At her follow-up visit on 03/17/2019 I did have her start venlafaxine for hot flashes. She continued her adjuvant hormonal therapy with anastrozole 1 mg daily. Her other medical illnesses have been limited to hypothyroidism and mild asthma. She is a non-smoker. INTERIM HISTORY: Sometime around August or September she began having major abdominal pain in the left lower quadrant area and she also had been having loose stools. Her colonoscopy on 09/22/2020 showed a few very small diverticuli in the sigmoid colon and a few small size uncomplicated internal hemorrhoids in the rectum. There were no other abnormal findings. Her symptoms improved after stopping metformin, though she continued to have some discomfort in the mid abdominal area. She was then seen in the emergency room on 11/15/2020. Her CT abdomen/pelvis showed mild diffuse fatty infiltration of the liver and a small amount of free fluid in the pelvis. There was no evidence of neoplastic disease, either primary or secondary. She is seen for a scheduled visit. She has still not been feeling that good. She says her energy is horrible to the point that she has trouble staying awake. This has worsened progressively over the past 6 months. She is still working, and her ECOG score is 1. She has good appetite. She has not had fever. She continues to complain of hot flashes and excessive sweating. She has allergy related sinus symptoms. She does not complain of shortness of breath, cough, or chest pain. She has a little bit of acid reflux, which she manages adequately with Tums. She currently has no other GI complaints. Bowel function has been okay since she stopped the Metformin. Bladder function is unchanged. She has nocturia 2 or 3 times. She has some joint pain in her hands, but just occasionally. She does not complain of headache or dizziness, and she has no focal neurologic symptoms. Medications: Anastrozole 1 Tablet (of 1 mg) Oral daily, Chlorthalidone 1 Tablet (of 25 mg) Oral daily, Levothyroxine Sodium 1 Tablet (of 88 mcg) Oral daily, metFORMIN HCl 1 Tablet (of 500 mg) Oral daily, Nitrofurantoin Monohyd Macro 1 Capsule (of 100 mg) Oral b.i.d., Singulair 1 Tablet (of 10 mg) Oral daily, Venlafaxine HCl ER 1 Capsule (of 150 mg) Capsule SR 24 HR Oral daily Allergies: Dicloxacillin Sodium and egg yolk. Vital Signs: Performed on Dec 28, 2020 16:35 Height - 64.50 in Weight - 224.8 lbs (HIGH) BSA - 2.07 sq.m BMI - 37.99 (HIGH) Temperature - 97.4 F (LOW) Pulse - 86 /min Respiration - 18 /min BP - 153/96 mm(hg) (HIGH) O2 Sat - 97 % Pain - 0 Fatigue - 4 Physical Examination: Constitutional - She looks good generally, Eyes - Sclerae nonicteric. Conjunctivae clear, ENMT - No lesions noted in the oral cavity, Hematologic/Lymphatic - No cervical or clavicular adenopathy, Respiratory - Lungs are clear with good air movement bilaterally, Cardiovascular - Heart rhythm is regular. There is no murmur, gallop, or rub noted, Breasts - There are no chest wall lesions noted. There is no axillary adenopathy, Abdomen - Soft. Liver and spleen are not enlarged. There is no abdominal mass or ascites noted and there is no inguinal adenopathy, Extremities - No edema, Neurologic - No focal neurologic deficits noted. Lab/Imaging: CBC shows hemoglobin 14.1 g, white blood cell count 8200, and platelet count 274,000. Comprehensive metabolic profile shows borderline renal function with BUN 14 and creatinine 1.1 mg/dL. Alkaline phosphatase is minimally elevated at 121/105 IU/L. The bilirubin and other liver enzymes are normal. Problem List: 1. Multifocal grade 3 invasive ductal carcinoma of the left breast, stage IB (pT2, pN0, M0), ER/RI positive and HER-2/parish negative. Her Oncotype DX was low risk with recurrence score 16. The absoulte benefit with adjuvant chemotherapy was predicted to be < 1%. 2. She has a strong family history of breast cancer, but her BRCA testing was reportedly negative. 3. Hypothyroidism. 4. Mild asthma, exercise-induced. Problems Addressed with this Encounter and Plan: Patient with multifocal grade 3 invasive ductal carcinoma of the left breast, stage IB (pT2, pN0, M0), ER/RI positive and HER-2/parish negative. Her Oncotype DX was low risk with recurrence score 16. The absoulte benefit with adjuvant chemotherapy was predicted to be < 1%. She underwent bilateral mastectomy with left axillary sentinel lymph node biopsy and immediate bilateral breast reconstruction on 09/08/2018. She began adjuvant endocrine therapy with Zoladex in December 2018, and she started anastrozole 1 mg daily on 01/05/2019. She undewent hysterectomy with bilateral oophorectomy in February 2019. Her further adjuvant hormonal therapy was limited to just the anastrozole. She had developed significant hot flashes with her endocrine therapy. Those symptoms had initially improved with venlafaxine, but during subsequent follow-up have worsened again, even with the venlafaxine dosage increased to 150 mg daily. She also is having significant fatigue and excessive somnolence. It is uncertain to what extent the symptoms may be due to the exemestane, to the anastrozole, or to other factors. In regard to the latter, I am suspicious about the possibility of underlying obstructive sleep apnea, and I will get her scheduled for a sleep study. In the meantime, I will have her try reducing the venlafaxine dosage to 75 mg daily. At least for now she will continue the anastrozole at 1 mg daily. I will tentatively plan a follow-up visit in 6 months. Signed By: Christopher He M.D. <<Signature on File>>
== END 2020-12-28 08:06 | disposition home or self-care (01) ==
LOC: ONCMED 08:06
PROVIDERS: PCP Nurse Practitioner Family; Visit Provider Internal Medicine Medical Oncology
DX: R79.89 Other specified abnormal findings of blood chemistry (principal)
CPT/HCPCS: 83036; 99214

== ENCOUNTER 2021-01-19 20:00 | Outpatient (CLI) | payer OTHER, SELFPAY | END 2021-01-19 20:01 | disposition home or self-care (01) | LOC: SLEEP 01-20 08:26 | PROVIDERS: PCP Nurse Practitioner Family; Visit Provider Internal Medicine Medical Oncology | DX: R06.83 Snoring (principal); R53.83 Other fatigue; G47.33 Obstructive sleep apnea (adult) (pediatric) | CPT/HCPCS: 95810 ==

== ENCOUNTER 2021-05-01 12:54 | Outpatient (REF) | payer OTHER, SELFPAY | END 2021-05-01 12:55 | disposition home or self-care (01) | LOC: LAB 12:54 | PROVIDERS: PCP Nurse Practitioner Family; Visit Provider Nurse Practitioner Family | DX: Z20.828 Contact with and (suspected) exposure to other viral communicable diseases (principal) | CPT/HCPCS: 87426; 87635 ==

== ENCOUNTER 2021-07-31 15:17 | Outpatient (CLI) | payer OTHER, SELFPAY ==
[2021-07-31 15:59] LABS: Basophils # 0.1 10^3/uL (0.0-0.1); Basophils % 0.7 %; Eosinophils # 0.1 10^3/uL (0.0-0.8); Eosinophils % 1.7 %; Hematocrit 42.3 % (37.0-47.0); Lymphocytes # 2.4 10^3/uL (0.8-4.8); Lymphocytes % 33.7 %; Mean Corpuscular HGB Conc 33.1 g/dL (30.0-36.0); Mean Corpuscular Hemoglobin 28.1 pg (28.0-34.0); Mean Corpuscular Volume 84.8 fl (81-99); Mean Platelet Volume 10.5 fL (7.4-10.4); Monocytes # 0.4 10^3/uL (0.2-0.9); Monocytes % 5.5 %; Neutrophils % 57.8 %; Nucleated Red Blood Cells % 0 %; Platelet Count 259 10^3/cmm (130-400); Red Blood Count 4.99 10^6/uL (4.1-5.3); Red Cell Distribution Width 14.1 % (12.1-15.1); White Blood Count 7.1 10^3/uL (4.0-10.0)
[2021-07-31 16:33] LABS: Alanine Aminotransferase 30 U/L (0-33); Albumin Level 4.4 g/dL (3.5-5.2); Alkaline Phosphatase 108 IU/L (35-105); Anion Gap 19.8 (5-19); Aspartate Amino Transferase 27 U/L (0-32); Blood Urea Nitrogen 14 mg/dL (6-20); Calcium 10.1 mg/dL (8.5-10.5); Carbon Dioxide 20 mmol/L (22-29); Chloride 106 mmol/L (98-107); Globulin 3.1 g/dL (1.3-4.6); Glucose 99 mg/dL (65-115); Osmolality Calculated 295 mOsm/kg (285-295); Potassium 3.8 mmol/L (3.5-5.1); Sodium 142 mmol/L (136-145); Total Bilirubin 0.2 mg/dL (0.15-1.2); Total Protein 7.5 g/dL (6.6-8.7)
[2021-07-31 17:08] LABS: Estmated Average Glucose 105; Hemoglobin A1C 5.3 % (4.0-6.0)
== END 2021-07-31 15:18 | disposition home or self-care (01) ==
PROVIDERS: PCP Nurse Practitioner Family; Visit Provider Internal Medicine Medical Oncology
DX: C50.212 Malignant neoplasm of upper-inner quadrant of left female breast (principal); E03.9 Hypothyroidism, unspecified; J45.909 Unspecified asthma, uncomplicated; Z79.899 Other long term (current) drug therapy
CPT/HCPCS: 36415; 80053; 83036; 85025

== ENCOUNTER 2021-08-02 06:35 | Outpatient (CLI) | payer OTHER, SELFPAY ==
[2021-08-02 15:58] LABS: Add Urine Microscopic? NO; Bilirubin Urine Neg (Negative); Blood Urine Neg (Negative); Glucose Urine UA Norm (Normal); Ketones Urine Negative (Negative); Leukocyte Esterase Urine Negative (Negative); Nitrate Urine Negative (Negative); Protein Urine Neg (Negative); Urine Appearance Clear (CLEAR); Urine Color Yellow (Yellow); Urobilinogen Urine Norm (Negative); pH Urine 5 (5-7)
[2021-08-02 15:59] LABS: Charge for UA Resulting for Rev
[2021-08-02 18:18] LABS: Thyroid Stimulating Hormone 5.76 uIU/mL (0.27-4.20)
--- NOTE | 2021-08-04 15:47 | ONC FU_ITS ---
Dr. He Patient Follow-Up Note Patient: Priyanka Cali Unit #: [id number]: 1975 Dicatated By: Christopher He M.D.Date of Visit:Aug 02, 2021 Onc Med Follow-up/Prog Note Chief Complaint: Breast cancer. History of Present Illness: This is a 46 year-old woman with multifocal grade 3 invasive ductal carcinoma of the left breast, stage IB (pT2, pN0, M0), ER/IA positive and HER-2/parish negative. In July 2018 she became aware of a lump in the lateral aspect of her left breast. She did have it evaluated immediately due to a strong family history of breast cancer, including her mother and maternal grandmother. Her diagnostic mammogram on 07/29/2018 showed only a very subtle suggestion of a 12 mm nodule immediately in the area of the palpable nodule. A nodule in the midportion of the right breast superiorly appeared stable compared to previous study from 2011. Ultrasound of the left breast showed an irregular hypoechoic mass at the 4:00 position 6 cm from the nipple. It measured 22 mm. There were no suspicious or enlarged lymph nodes noted in the left axilla. Ultrasound guided needle biopsy of the left breast mass on 08/14/2018 showed grade 3 invasive ductal carcinoma. The tumor was found to be are positive at 92% and. Positive at 41%. There was negative for overexpression of HER-2/parish, 1+ by IHC. She then had further evaluation with breast MRI. It reportedly showed an additional enhancing mass measuring 0.8 cm located 3.8 cm posterior to the known lesion at 4:00. There was additional finding of the right breast open up her inner quadrant mass with a small satellite lesion, also felt to be suspicious. A second ultrasound-guided biopsy of the left breast on 09/03/2018 showed invasive ductal carcinoma with focal micropapillary features, grade 1. It was ER positive at 99% and IA positive at 95%. It also was negative for overexpression of HER-2/parish, 1+ by IHC. Biopsy of the right breast mass showed fibroadenoma. On 09/08/2018 she underwent bilateral mastectomy with left axillary sentinel lymph node biopsy and immediate bilateral breast reconstruction. Pathology showed a 2.2 x 1.5 x 1.3 cm poorly defined mass located in the lower outer quadrant of the left breast. The mass was noted to contain a metal biopsy clip. Approximately 2.5 cm deep to the mass was a 2.5 x 1.5 x 0.5 cm area of dense fibrous tissue which contained a possible previous biopsy cavity. The 2.2 cm mass showed grade 3 invasive ductal carcinoma. The second biopsy site showed no residual invasive carcinoma. The left axillary sentinel lymph node biopsy shows no involvement in 4 lymph nodes. The right breast showed evidence of previous biopsy site with residual fibroadenoma, but no evidence of in situ or invasive carcinoma. I had seen her initially on 09/26/2018 regard to recommendations for adjuvant therapy. She then had further evaluation with Oncotype DX. It showed a recurrence score of 16, low risk, with a predicted risk of distant recurrence of 4% at 9 years with adjuvant hormonal therapy. The absolute benefit with adjuvant chemotherapy was predicted to be less than 1% based on results of the TAILORx trial. As such, adjuvant chemotherapy was not recommended. At that time I reviewed the options for adjuvant hormonal therapy including tamoxifen versus an aromatase inhibitor in combination with an LHRH analog. She opted for the latter. She then began treatment with Zoladex 3.6 mg monthly on 12/12/2018, and she started anastrozole 1 mg daily on 01/05/2019. She received a second injection of Zoladex on 01/12/2019. During this time she had consulted with her playground attendant and in February 2019 she underwent hysterectomy with bilateral salpingo-oophorectomy. She then underwent revision of her breast scar. At her follow-up visit on 03/17/2019 I did have her start venlafaxine for hot flashes. She continued her adjuvant hormonal therapy with anastrozole 1 mg daily. Her other medical illnesses have been limited to hypothyroidism and mild asthma. She is a non-smoker. INTERIM HISTORY: Sometime around August or September she began having major abdominal pain in the left lower quadrant area and she also had been having loose stools. Her colonoscopy on 09/22/2020 showed a few very small diverticuli in the sigmoid colon and a few small size uncomplicated internal hemorrhoids in the rectum. There were no other abnormal findings. Her symptoms improved after stopping metformin, though she continued to have some discomfort in the mid abdominal area. She was then seen in the emergency room on 11/15/2020. Her CT abdomen/pelvis showed mild diffuse fatty infiltration of the liver and a small amount of free fluid in the pelvis. There was no evidence of neoplastic disease, either primary or secondary. As of her follow-up visit on 12/28/2020 she had continued adjuvant hormonal therapy with anastrozole 1 mg daily. However, in April 2021 she stopped treatment due to new onset of tingling in her hands and feet. She is seen for a follow-up visit. She has multiple complaints. Her blood pressure has been running high and it continues to be elevated despite having increased her lisinopril dosage to 40 mg daily. Within the past 3 to 4 weeks she developed pain in her left upper quadrant area. It is a sharp pain that radiates downward. It tends to bother her most when she is just sitting around or lying on her left side. It sometimes hurts when she takes a deep breath. It is otherwise not associated with activity and it is not associated with eating. She says her energy is horrible. She is working. ECOG score is 1. Her appetite and eating is the same, but she has had significant weight gain, in the range of 20 lbs. She has not had fever. She feels warm at times, but she is not having actual hot flashes now. She sometimes has trouble getting in a deep breath, but her breathing is otherwise OK. She does not have chest pain. She has not been having nausea, and her bowel function has been okay. She is wondering about possibility of urinary tract infection, as she is having some back pain and some urgency. She also has been having pain in the groin area on both sides, mainly with activity. She does not complain of headache or dizziness. The neuropathy symptoms in her hands and legs improved within 2 weeks after stopping anastrozole. Medications: Levothyroxine Sodium 1 Tablet (of 100 mcg) Oral daily, Lisinopril 1 Tablet (of 40 mg) Oral daily Allergies: Dicloxacillin Sodium and egg yolk. Vital Signs: Performed on Aug 02, 2021 14:24 Height - 64.50 in Weight - 243.8 lbs (HIGH) BSA - 2.14 sq.m BMI - 41.20 (HIGH) Temperature - 98.8 F Pulse - 74 /min Respiration - 16 /min BP - 156/100 mm(hg) (HIGH) O2 Sat - 96 % Pain - 0 Fatigue - 6 Physical Examination: Constitutional - She looks pretty good generally, Eyes - Sclerae nonicteric. Conjunctivae clear, ENMT - No lesions noted in the oral cavity, Hematologic/Lymphatic - No cervical, clavicular, or axillary adenopathy, Respiratory - Lungs are clear with good air movement bilaterally, Cardiovascular - Heart rhythm is regular. There is no murmur, gallop, or rub noted, Abdomen - Soft. There is mild tenderness in the left upper quadrant. Liver and spleen are not enlarged. There is no abdominal mass or ascites noted and there is no inguinal adenopathy, Extremities - No edema. Her groin pain on both sides is reproduced with reproduced with rotation at the respective hip joint, Neurologic - No focal neurologic deficits noted. Problem List: 1. Multifocal grade 3 invasive ductal carcinoma of the left breast, stage IB (pT2, pN0, M0), ER/IA positive and HER-2/parish negative. Her Oncotype DX was low risk with recurrence score 16. The absoulte benefit with adjuvant chemotherapy was predicted to be < 1%. 2. She has a strong family history of breast cancer, but her BRCA testing was reportedly negative. 3. Hypothyroidism. 4. Mild asthma, exercise-induced. Problems Addressed with this Encounter and Plan: Patient with multifocal grade 3 invasive ductal carcinoma of the left breast, stage IB (pT2, pN0, M0), ER/IA positive and HER-2/parish negative. Her Oncotype DX was low risk with recurrence score 16. The absoulte benefit with adjuvant chemotherapy was predicted to be < 1%. She underwent bilateral mastectomy with left axillary sentinel lymph node biopsy and immediate bilateral breast reconstruction on 09/08/2018. She began adjuvant endocrine therapy with Zoladex in December 2018, and she started anastrozole 1 mg daily on 01/05/2019. She undewent hysterectomy with bilateral oophorectomy in February 2019. Her further adjuvant hormonal therapy was limited to just the anastrozole. She had developed significant hot flashes with her endocrine therapy, but those symptoms eventually subsided. However, as of April 2021 the anastrozole was put on hold when she developed neuropathy symptoms in her hands and feet. The neuropathy symptoms improved within 2 weeks after stopping the medication. She has since then developed multiple other complaints which include severe fatigue, weight gain, left upper quadrant abdominal pain, and bilateral groin pain, among others. She also has been having persistent hypertension despite having increased her lisinopril dosage to 40 mg daily. At this point the anastrozole will remain on hold. I recommended that she restart the chlorthalidone along with the lisinopril. I will check laboratory studies today to include CBC, comprehensive metabolic profile, and TSH level. I also will check urinalysis and culture. She will have further evaluation as indicated. Signed By: Christopher He M.D. <<Signature on File>>
== END 2021-08-02 06:36 | disposition home or self-care (01) ==
LOC: ONCMED 06:36
PROVIDERS: PCP Nurse Practitioner Family; Visit Provider Internal Medicine Medical Oncology
DX: C50.012 Malignant neoplasm of nipple and areola, left female breast (principal); Z17.0 Estrogen receptor positive status [ER+]; Z80.3 Family history of malignant neoplasm of breast; E03.9 Hypothyroidism, unspecified; J45.909 Unspecified asthma, uncomplicated; Z90.710 Acquired absence of both cervix and uterus; Z90.722 Acquired absence of ovaries, bilateral; Z79.899 Other long term (current) drug therapy
CPT/HCPCS: 81003; 84443; 99214

== ENCOUNTER → 2021-09-20 13:49 | Outpatient (BNVA) | payer OTHER, SELFPAY | PROVIDERS: Visit Provider Family Medicine | DX: E03.9 Hypothyroidism, unspecified (principal); G56.90 Unspecified mononeuropathy of unspecified upper limb; R10.12 Left upper quadrant pain; R53.82 Chronic fatigue, unspecified; Z13.220 Encounter for screening for lipoid disorders; Z13.6 Encounter for screening for cardiovascular disorders; Z76.89 Persons encountering health services in other specified circumstances; I10 Essential (primary) hypertension | CPT/HCPCS: 80053; 80061; 84439; 84443; 84481; 85651; 86140 ==

== ENCOUNTER 2021-09-28 15:19 | Outpatient (CLI) | payer OTHER, SELFPAY ==
--- NOTE | 2021-09-30 11:33 | ONC FU_ITS ---
Dr. He Patient Follow-Up Note Patient: Priyanka Cali Unit #: [id number]: 1975 Dicatated By: Christopher He M.D.Date of Visit:Sep 28, 2021 Onc Med Follow-up/Prog Note Chief Complaint: Breast cancer. History of Present Illness: This is a 46 year-old woman with multifocal grade 3 invasive ductal carcinoma of the left breast, stage IB (pT2, pN0, M0), ER/[place] positive and HER-2/parish negative. In July 2018 she became aware of a lump in the lateral aspect of her left breast. She did have it evaluated immediately due to a strong family history of breast cancer, including her mother and maternal grandmother. Her diagnostic mammogram on 07/29/2018 showed only a very subtle suggestion of a 12 mm nodule immediately in the area of the palpable nodule. A nodule in the midportion of the right breast superiorly appeared stable compared to previous study from 2011. Ultrasound of the left breast showed an irregular hypoechoic mass at the 4:00 position 6 cm from the nipple. It measured 22 mm. There were no suspicious or enlarged lymph nodes noted in the left axilla. Ultrasound guided needle biopsy of the left breast mass on 08/14/2018 showed grade 3 invasive ductal carcinoma. The tumor was found to be are positive at 92% and. Positive at 41%. There was negative for overexpression of HER-2/parish, 1+ by IHC. She then had further evaluation with breast MRI. It reportedly showed an additional enhancing mass measuring 0.8 cm located 3.8 cm posterior to the known lesion at 4:00. There was additional finding of the right breast open up her inner quadrant mass with a small satellite lesion, also felt to be suspicious. A second ultrasound-guided biopsy of the left breast on 09/03/2018 showed invasive ductal carcinoma with focal micropapillary features, grade 1. It was ER positive at 99% and [place] positive at 95%. It also was negative for overexpression of HER-2/parish, 1+ by IHC. Biopsy of the right breast mass showed fibroadenoma. On 09/08/2018 she underwent bilateral mastectomy with left axillary sentinel lymph node biopsy and immediate bilateral breast reconstruction. Pathology showed a 2.2 x 1.5 x 1.3 cm poorly defined mass located in the lower outer quadrant of the left breast. The mass was noted to contain a metal biopsy clip. Approximately 2.5 cm deep to the mass was a 2.5 x 1.5 x 0.5 cm area of dense fibrous tissue which contained a possible previous biopsy cavity. The 2.2 cm mass showed grade 3 invasive ductal carcinoma. The second biopsy site showed no residual invasive carcinoma. The left axillary sentinel lymph node biopsy shows no involvement in 4 lymph nodes. The right breast showed evidence of previous biopsy site with residual fibroadenoma, but no evidence of in situ or invasive carcinoma. I had seen her initially on 09/26/2018 regard to recommendations for adjuvant therapy. She then had further evaluation with Oncotype DX. It showed a recurrence score of 16, low risk, with a predicted risk of distant recurrence of 4% at 9 years with adjuvant hormonal therapy. The absolute benefit with adjuvant chemotherapy was predicted to be less than 1% based on results of the TAILORx trial. As such, adjuvant chemotherapy was not recommended. At that time I reviewed the options for adjuvant hormonal therapy including tamoxifen versus an aromatase inhibitor in combination with an LHRH analog. She opted for the latter. She then began treatment with Zoladex 3.6 mg monthly on 12/12/2018, and she started anastrozole 1 mg daily on 01/05/2019. She received a second injection of Zoladex on 01/12/2019. During this time she had consulted with her granite block paver and in February 2019 she underwent hysterectomy with bilateral salpingo-oophorectomy. She then underwent revision of her breast scar. At her follow-up visit on 03/17/2019 I did have her start venlafaxine for hot flashes. She continued her adjuvant hormonal therapy with anastrozole 1 mg daily. Her other medical illnesses have been limited to hypothyroidism and mild asthma. She is a non-smoker. INTERIM HISTORY: Sometime around August or September she began having major abdominal pain in the left lower quadrant area and she also had been having loose stools. Her colonoscopy on 09/22/2020 showed a few very small diverticuli in the sigmoid colon and a few small size uncomplicated internal hemorrhoids in the rectum. There were no other abnormal findings. Her symptoms improved after stopping metformin, though she continued to have some discomfort in the mid abdominal area. She was then seen in the emergency room on 11/15/2020. Her CT abdomen/pelvis showed mild diffuse fatty infiltration of the liver and a small amount of free fluid in the pelvis. There was no evidence of neoplastic disease, either primary or secondary. As of her follow-up visit on 12/28/2020 she had continued adjuvant hormonal therapy with anastrozole 1 mg daily. However, in April 2021 she stopped treatment due to new onset of tingling in her hands and feet. During subsequent follow-up she continued to have multiple complaints, the most significant being abdominal pain in the left upper quadrant area, bilateral groin pain, and weight gain. Thus far she has had no further treatment for the breast cancer. She is seen for a follow-up visit. She continues to complain that she feels tired and she has excessive somnolence. She is still working. ECOG score is 1. She says the pain in her left side is still there, though not as intense. She has been taking Aleve or ibuprofen on a daily basis. She has been undergoing additional evaluation with Dr. Jasiel i which included some recent lab studies. Her appetite has been okay, though not necessarily good. She says she has not been eating as much, but she has continued to gain weight. She has not had fever. She has just a few hot flashes. She does not complain of sinus drainage and she has not had sore mouth or throat. She gets out of breath pretty quickly with any activity. She has not been having cough or chest pain. She has not been having nausea. She does have some acid reflux. Bowel function has been okay. She has frequent urination. She complains that her legs hurt and she also complains that her hands and feet hurt. She has trouble with the feeling in her hands, and she has been somewhat prone to dropping objects. She has some headaches, but not bad. She has no other focal neurologic symptoms. Medications: Chlorthalidone 1 Tablet (of 25 mg) Oral daily, Levothyroxine Sodium 1 Tablet (of 100 mcg) Oral daily, Lisinopril 1 Tablet (of 40 mg) Oral daily Allergies: Dicloxacillin Sodium and egg yolk. Vital Signs: Performed on Sep 28, 2021 15:33 Height - 64.50 in Weight - 239.8 lbs (LOW) BSA - 2.12 sq.m BMI - 40.53 (HIGH) Temperature - 97.8 F (LOW) Pulse - 75 /min Respiration - 16 /min BP - 120/86 mm(hg) O2 Sat - 98 % Pain - 0 Fatigue - 2 Physical Examination: Constitutional - She looks pretty good generally, Eyes - Sclerae nonicteric. Conjunctivae clear, ENMT - No lesions noted in the oral cavity, Hematologic/Lymphatic - No cervical, clavicular, or axillary adenopathy, Respiratory - Lungs are clear with good air movement bilaterally, Cardiovascular - Heart rhythm is regular. There is no murmur, gallop, or rub noted, Abdomen - Soft. There is mild tenderness in the left upper quadrant, just below the left costal margin. Liver and spleen are not enlarged. There is no abdominal mass or ascites noted and there is no inguinal adenopathy, Extremities - No edema, Neurologic - No focal neurologic deficits noted. Problem List: 1. Multifocal grade 3 invasive ductal carcinoma of the left breast, stage IB (pT2, pN0, M0), ER/[place] positive and HER-2/parish negative. Her Oncotype DX was low risk with recurrence score 16. The absoulte benefit with adjuvant chemotherapy was predicted to be < 1%. 2. She has a strong family history of breast cancer, but her BRCA testing was reportedly negative. 3. Hypothyroidism. 4. Mild asthma, exercise-induced. Problems Addressed with this Encounter and Plan: Patient with multifocal grade 3 invasive ductal carcinoma of the left breast, stage IB (pT2, pN0, M0), ER/[place] positive and HER-2/parish negative. Her Oncotype DX was low risk with recurrence score 16. The absoulte benefit with adjuvant chemotherapy was predicted to be < 1%. She underwent bilateral mastectomy with left axillary sentinel lymph node biopsy and immediate bilateral breast reconstruction on 09/08/2018. She began adjuvant endocrine therapy with Zoladex in December 2018, and she started anastrozole 1 mg daily on 01/05/2019. She undewent hysterectomy with bilateral oophorectomy in February 2019. Her further adjuvant hormonal therapy was limited to just the anastrozole. She had developed significant hot flashes with her endocrine therapy, but those symptoms eventually subsided. However, as of April 2021 the anastrozole was put on hold when she developed neuropathy symptoms in her hands and feet. The neuropathy symptoms improved within 2 weeks after stopping the medication. She subsequently developed multiple other complaints which include severe fatigue, weight gain, left upper quadrant abdominal pain, and bilateral groin pain, among others. She was having persistent hypertension despite having increased her lisinopril dosage to 40 mg daily, but that did improve after she restarted her diuretic. At this point she continues to have significant fatigue/somnolence and she continues to have pain in the left upper quadrant area as well as neuropathy symptoms in her hands and feet. The cause remains uncertain, but it does not appear to be associated with her adjuvant hormonal therapy. As she is completing additional evaluation with Dr. Weathers, I will temporarily keep her treatment on hold. However, I do anticipate starting further adjuvant hormonal therapy with exemestane 25 mg daily in the near future. In the meantime, I will have her start pantoprazole 40 mg daily for her acid reflux symptoms. Signed By: Christopher He M.D. <<Signature on File>>
== END 2021-09-28 15:20 | disposition home or self-care (01) ==
PROVIDERS: Visit Provider Internal Medicine Medical Oncology
DX: C50.212 Malignant neoplasm of upper-inner quadrant of left female breast (principal); Z17.0 Estrogen receptor positive status [ER+]; R53.82 Chronic fatigue, unspecified; R10.12 Left upper quadrant pain; Z80.3 Family history of malignant neoplasm of breast; E03.9 Hypothyroidism, unspecified; J45.909 Unspecified asthma, uncomplicated; R63.5 Abnormal weight gain; Z68.41 Body mass index [BMI] 40.0-44.9, adult; Z90.13 Acquired absence of bilateral breasts and nipples; Z90.722 Acquired absence of ovaries, bilateral; Z90.710 Acquired absence of both cervix and uterus
CPT/HCPCS: 99214

== ENCOUNTER → 2021-10-09 17:06 | Outpatient (BNVA) | payer OTHER, SELFPAY | PROVIDERS: Visit Provider Family Medicine | DX: N28.9 Disorder of kidney and ureter, unspecified (principal); R53.82 Chronic fatigue, unspecified; N76.0 Acute vaginitis; B96.89 Other specified bacterial agents as the cause of diseases classified elsewhere; N39.0 Urinary tract infection, site not specified; Z68.41 Body mass index [BMI] 40.0-44.9, adult | CPT/HCPCS: 82533; 86038; 86200; 86431 ==

== ENCOUNTER → 2021-11-14 10:16 | Outpatient (BNVA) | payer OTHER, SELFPAY | PROVIDERS: Visit Provider Internal Medicine Rheumatology | DX: M19.90 Unspecified osteoarthritis, unspecified site (principal); Z79.899 Other long term (current) drug therapy; Z11.59 Encounter for screening for other viral diseases; R76.8 Other specified abnormal immunological findings in serum; M79.7 Fibromyalgia; G62.9 Polyneuropathy, unspecified | CPT/HCPCS: 80076; 81001; 82306; 82570; 84156; 85025; 85651; 86140; 86480; 86704; 86803; 87340 ==

== ENCOUNTER → 2022-03-12 13:26 | Outpatient (BNVA) | payer OTHER, SELFPAY | PROVIDERS: PCP Family Medicine; Visit Provider Registered Nurse Neonatal Intensive Care | DX: N39.0 Urinary tract infection, site not specified (principal); R39.9 Unspecified symptoms and signs involving the genitourinary system | CPT/HCPCS: 81000; 87086 ==

== ENCOUNTER 2022-03-20 08:51 | Outpatient (CLI) | payer OTHER, SELFPAY ==
[2022-03-20 09:15] LABS: Basophils # 0.1 10^3/uL (0.0-0.1); Basophils % 0.7 %; Eosinophils % 0.3 %; Hematocrit 42.7 % (37.0-47.0); Hemoglobin 13.3 g/dL (11.5-15.3); Lymphocytes # 2.4 10^3/uL (0.8-4.8); Lymphocytes % 30.8 %; Mean Corpuscular HGB Conc 31.1 g/dL (30.0-36.0); Mean Corpuscular Hemoglobin 28.2 pg (28.0-34.0); Mean Corpuscular Volume 90.7 fl (81-99); Mean Platelet Volume 10.3 fL (7.4-10.4); Monocytes # 0.3 10^3/uL (0.2-0.9); Monocytes % 3.9 %; Neutrophils # 4.86 10^3/uL (1.8-7.7); Neutrophils % 63.1 %; Nucleated Red Blood Cells % 0 %; Platelet Count 266 10^3/cmm (130-400); Red Blood Count 4.71 10^6/uL (4.1-5.3); Red Cell Distribution Width 13.5 % (12.1-15.1); White Blood Count 7.7 10^3/uL (4.0-10.0)
[2022-03-20 09:37] LABS: Alanine Aminotransferase 16 U/L (0-33); Albumin Level 4.4 g/dL (3.5-5.2); Alkaline Phosphatase 87 U/L (35-105); Aspartate Amino Transferase 13 U/L (0-32); Globulin 2.3 g/dL (1.3-4.6); Total Bilirubin 0.2 mg/dL (0.15-1.2); Total Protein 6.7 g/dL (6.6-8.7)
[2022-03-21 13:18] LABS: COMPLEMENT, TOTAL (CH50) >60 U/mL (31-60)
[2022-03-21 14:13] LABS: COMPLEMENT COMPONENT C3C 155 mg/dL (83-193); COMPLEMENT COMPONENT C4C 28 mg/dL (15-57)
[2022-03-22 13:57] LABS: CENTROMERE B ANTIBODY <1.0 NEG AI (<1.0 NEG); JO-1 ANTIBODY <1.0 NEG AI (<1.0 NEG); RNP ANTIBODY <1.0 NEG AI (<1.0 NEG); SCL-70 ANTIBODY <1.0 NEG AI (<1.0 NEG); SJOGREN'S ANTIBODY (SS-A) <1.0 NEG AI (<1.0 NEG); SM ANTIBODY <1.0 NEG AI (<1.0 NEG); SS-B <1.0 NEG AI (<1.0 NEG)
[2022-03-22 16:38] LABS: THYROID PEROXIDASE ANTIBODIES 133 IU/mL (<9)
[2022-03-23 12:42] LABS: ANA SCREEN, IFA POSITIVE (NEGATIVE)
[2022-03-23 12:53] LABS: ANA PATTERN Nuclear, Speckled
[2022-03-27 12:57] LABS: DNA AB (DS) CRITHIDIA,IFA NEGATIVE (NEGATIVE)
== END 2022-03-20 08:52 | disposition home or self-care (01) ==
LOC: LAB 08:53
PROVIDERS: PCP Family Medicine; Visit Provider Internal Medicine Rheumatology
DX: M19.90 Unspecified osteoarthritis, unspecified site (principal); R76.8 Other specified abnormal immunological findings in serum; Z79.899 Other long term (current) drug therapy
CPT/HCPCS: 80076; 82565; 85025; 86140; 86160; 86162; 86235; 86255; 86376

== ENCOUNTER → 2022-09-14 14:44 | Outpatient (BNVA) | payer OTHER, SELFPAY | PROVIDERS: PCP Family Medicine; Visit Provider Family Medicine | DX: R10.12 Left upper quadrant pain (principal); R14.0 Abdominal distension (gaseous); Z79.899 Other long term (current) drug therapy; M19.90 Unspecified osteoarthritis, unspecified site | CPT/HCPCS: 80053; 80076; 84439; 84443; 85025; 86036; 86140 ==

== ENCOUNTER 2022-11-13 15:01 | Observation (INO) | payer OTHER, SELFPAY ==
[2022-11-13] VITALS (8 sets, daily range): BP systolic 107–141; BP diastolic 63–95; PULSE 70–87; RESP 16–18; TEMP 36.8–36.9; O2SAT 94–100; BMI 40.1
[2022-11-13 16:15] LABS: Basophils # 0.1 10^3/uL (0.0-0.1); Basophils % 0.4 %; Eosinophils % 0.2 %; Hematocrit 42.2 % (37.0-47.0); Hemoglobin 13.6 g/dL (11.5-15.3); Lymphocytes # 1.2 10^3/uL (0.8-4.8); Lymphocytes % 7.8 %; Mean Corpuscular HGB Conc 32.2 g/dL (30.0-36.0); Mean Corpuscular Hemoglobin 27.6 pg (28.0-34.0); Mean Corpuscular Volume 85.8 fl (81-99); Mean Platelet Volume 11.1 fL (7.4-10.4); Monocytes # 0.5 10^3/uL (0.2-0.9); Monocytes % 3.5 %; Neutrophils # 12.91 10^3/uL (1.8-7.7); Neutrophils % 87.7 %; Nucleated Red Blood Cells % 0 %; Platelet Count 201 10^3/cmm (130-400); Red Blood Count 4.92 10^6/uL (4.1-5.3); Red Cell Distribution Width 14.2 % (12.1-15.1); White Blood Count 14.7 10^3/uL (4.0-10.0)
[2022-11-13 16:32] LABS: Alanine Aminotransferase 28 U/L (0-33); Albumin Level 4.5 g/dL (3.5-5.2); Alkaline Phosphatase 96 U/L (35-105); Anion Gap 14.5 (5-19); Aspartate Amino Transferase 28 U/L (0-32); Blood Urea Nitrogen 13 mg/dL (6-20); Calcium 9.6 mg/dL (8.5-10.5); Carbon Dioxide 28 mmol/L (22-29); Chloride 101 mmol/L (98-107); Globulin 2.9 g/dL (1.3-4.6); Glomerular Filtration Rate 53.7 mL/min (90-130); Glucose 131 mg/dL (65-115); HCG, Serum Qual Negative (Negative); Lipase 31 U/L (13-60); Osmolality Calculated 292 mOsm/kg (285-295); Potassium 3.5 mmol/L (3.5-5.1); Sodium 140 mmol/L (136-145); Total Bilirubin 0.3 mg/dL (0.15-1.2); Total Protein 7.4 g/dL (6.6-8.7)
[2022-11-13 16:35] LABS: Add Urine Microscopic? NO; Charge for UA Resulting for Rev
--- NOTE | 2022-11-13 16:53 | ED_ITS ---
Documented by User: SHAUNNA Gramajo 11/14/22 07:05 HPI - Abdominal Pain General: Chief Complaint: Abdominal Pain Stated Complaint: abd pain Time Seen by Provider: 11/13/22 16:09 History of Present Illness: Patient is a 47-year-old female comes to the ED with abdominal pain. Past surgical history of hysterectomy. Symptoms started around noon today. She says she ate a chip and some colvin dip and right after that she developed cute onset of right upper and right lower quadrant abdominal pain. Pain was severe and she was having nausea and vomiting. Pain has slowly improved since onset of symptoms and she rates the pain currently a 5 out of 10. She states that she vomited approximately 3 times since onset of symptoms. Denies any fevers, dysuria, hematuria, diarrhea, constipation or blood in stool. Associated Symptoms: Reports nausea and vomiting; Denies chills, constipation, diarrhea, dysuria, fever(s), hematochezia and hematuria Review of Systems Const: Denies: fever(s), chills or fatigue Eyes: Denies: change in vision or eye discomfort ENMT: Denies: throat pain, odynophagia, nasal discharge or nasal congestion Card: Denies: chest pain, palpitations, edema, swelling of feet/ankles, dyspnea on exertion or orthopnea Resp: Denies: dyspnea, productive cough or non-productive cough GI: Reports: abdominal pain, nausea and vomiting; Denies: diarrhea, constipation or hematochezia : Denies: flank pain, dysuria or hematuria Musc: Denies: neck pain, back pain or extremity swelling Skin/Breast: Denies: rash or new lesions Neuro: Denies: headache(s), numbness in extremities or weakness in extremities PFS ED PFSH: Medical History (Updated 11/13/22 @ 19:28 by ALFREDO Dunn) Estrogen receptor positive status [ER+] Fibromyalgia Fibromyalgia High risk medication use Hx of breast cancer Inflammatory arthritis Joint pain LUQ pain Malignant neoplasm of lower-outer quadrant of left female breast Muscle pain Peripheral neuropathy Skin lesion of face TMJ (sprain of temporomandibular joint) Surgical History H/O: hysterectomy History of delivery S/P mastectomy, bilateral Family History Mother Cancer Breast Father Cancer Breast, Leukemia, colon, Hypertension Other Lung disease Denies family history of Rheumatoid arthritis Diabetes Lupus Chronic kidney disease (CKD) Stroke Social History Smoking and tobacco status: never smoked Alcohol intake: current Alcohol intake frequency: holidays/special occasions only Substance/Drug Use: never Adopted: No Caregiver/support person: No Lives independently: Yes Marital status: Current gender identity: Female Female Reproductive History: Spontaneous abortions: No Physical Exam Const: COMMON NORMALS: patient oriented x3 and alert HENMT: COMMON NORMALS: normocephalic HEAD & SCALP: normocephalic MOUTH: Normal oral and palatal mucosa present THROAT: posterior oropharynx normal and uvula midline Neck/C-Spine: COMMON NORMALS: supple GENERAL: Yes normal visual inspection Resp: COMMON NORMALS: normal respiratory effort, No retractions, No use of accessory muscles and clear to auscultation bilaterally AUSCULTATION: clear to auscultation bilaterally Cardio: COMMON NORMALS: regular rate, regular rhythm, S1 normal heart sound present, S2 normal heart sound present, No gallops present (Cardio), No clicks present (Cardio), No murmurs present (Cardio) and Peripheral pulses 2+ throughout RATE: regular rate RHYTHM: regular rhythm HEART SOUNDS: S1 normal heart sound present and S2 normal heart sound present PERIPHERAL PULSES: Peripheral pulses 2+ throughout GI: COMMON NORMALS: Normal to inspection, nondistended, normoactive bowel sounds present, Soft to palpation and no masses PALPATION: Yes Soft to pa lpation and Yes Tenderness to palpation present (GI) Details: RLQ and RUQ : COMMON NORMALS: Yes no CVA tenderness BLADDER/KIDNEY EXAM: Yes no CVA tenderness Back/Pelvis: COMMON NORMALS: no CVA tenderness Extremity: COMMON NORMALS: normal to inspection Neuro: COMMON NORMALS: patient oriented x3 SENSORIUM/ORIENTATION: Yes alert GAIT: Yes Normal gait present Skin: GENERAL SKIN EXAM: dry skin Course Vital Signs: Vital signs: Vital Signs Temperature 98.5 F 11/14/22 03:00 Pulse Rate 62 11/14/22 03:00 Respiratory Rate 16 11/14/22 06:16 Blood Pressure 101/68 11/14/22 03:00 Pulse Oximetry 98 11/14/22 03:00 Oxygen Delivery Me thod Room Air 11/14/22 03:00 MDM - Abdominal Pain Medical Decision Making Patient is a 47-year-old female comes to the ED with abdominal pain. Past corina gical history of hysterectomy. Symptoms started around noon today. She says she ate a chip and some colvin dip and right after that she developed cute onset of right upper and right lower quadrant abdominal pain. Pain was severe and she was having nausea and vomiting. Pain has slowly improved since onset of symptoms and she rates the pain currently a 5 out of 10. She states that she vomited approximately 3 times since onset of symptoms. Denies any fevers, dysuria, hematuria, diarrhea, constipation or blood in stool. Vital stable. Patient appears nontoxic and in no acute distress. She has some generalized right-sided abdominal tenderness but rest of exam is benign. White blood cell count of 14.7 and a creatinine of 1.1 but the rest of CBC and CMP are unremarkable. Lipase normal at 31. UA is unremarkable. Patient was given 1 L of IV fluids and nausea meds. CT of abdomen pelvis is pending. Lab Data I reviewed the patient's lab results. 11/13/22 15:50 11/13/22 15:50 Labs/Radiology: Radiology Impressions Abdomen/Pelvis CT 11/13/22 16:55 IMPRESSION: 1. Appendix dilated to 10 mm with wall thickening and surrounding edema consistent with acute appendicitis. 2. Hepatic steatosis. 3. Splenic cyst. 4. Constipation. 5. Small hiatal hernia. ADDENDUM: 11/13/221937 THIS REPORT CONTAINS FINDINGS THAT MAY BE CRITICAL TO PATIENT CARE. Bakari Martin - Read report and has no questions at 7:36 PM CDT on 11/13/2022. Laboratory Results WBC 14.7 10^3/uL (4.0-10.0) H 11/13/22 15:50 RBC 4.92 10^6/uL (4.1-5.3) 11/13/22 15:50 Hgb 13.6 g/dL (11.5-15.3) 11/13/22 15:50 Hct 42.2 % (37.0-47.0) 11/13/22 15:50 MCV 85.8 fl (81-99) 11/13/22 15:50 MCH 27.6 pg (28.0-34.0) L 11/13/22 15:50 MCHC 32.2 g/dL (30.0-36.0) 11/13/22 15:50 RDW 14.2 % (12.1-15.1) 11/13/22 15:50 Plt Count 201 10^3/cmm (130-400) 11/13/22 15:50 MPV 11.1 fL (7.4-10.4) H 11/13/22 15:50 Neut % (Auto) 87.7 % 11/13/22 15:50 Lymph % (Auto) 7.8 % 11/13/22 15:50 [place] % (Auto) 3.5 % 11/13/22 15:50 Eos % (Auto) 0.2 % 11/13/22 15:50 Baso % (Auto) 0.4 % 11/13/22 15:50 Neut # (Auto) 12.91 10^3/uL (1.8-7.7) H 11/13/22 15:50 Lymph # (Auto) 1.2 10^3/uL (0.8-4.8) 11/13/22 15:50 [place] # (Auto) 0.5 10^3/uL (0.2-0.9) 11/13/22 15:50 Eos # (Auto) 0.0 10^3/uL (0.0-0.8) 11/13/22 15:50 Baso # (Auto) 0.1 10^3/uL (0.0-0.1) 11/13/22 15:50 Nucleated RBC % (auto) 0 % 11/13/22 15:50 Nucleated RBCs # 0.0 /100WBC 11/13/22 15:50 Sodium 140 mmol/L (136-145) 11/13/22 15:50 Potassium 3.5 mmol/L (3.5-5.1) 11/13/22 15:50 Chloride 101 mmol/L (98-107) 11/13/22 15:50 Carbon Dioxide 28 mmol/L (22-29) 11/13/22 15:50 Anion Gap 14.5 (5-19) 11/13/22 15:50 BUN 13 mg/dL (6-20) 11/13/22 15:50 Creatinine 1.1 mg/dL (0.5-0.9) H 11/13/22 15:50 GFR Calculation 53.7 mL/min (90-130) L 11/13/22 15:50 Glucose 131 mg/dL (65-115) H 11/13/22 15:50 Calculated Osmolality 292 mOsm/kg (285-295) 11/13/22 15:50 Calcium 9.6 mg/dL (8.5-10.5) 11/13/22 15:50 Total Bilirubin 0.3 mg/dL (0.15-1.2) 11/13/22 15:50 AST 28 U/L (0-32) 11/13/22 15:50 ALT 28 U/L (0-33) 11/13/22 15:50 Alkaline Phosphatase 96 U/L (35-105) 11/13/22 15:50 Total Protein 7.4 g/dL (6.6-8.7) 11/13/22 15:50 Albumin 4.5 g/dL (3.5-5.2) 11/13/22 15:50 Globulin 2.9 g/dL (1.3-4.6) 11/13/22 15:50 Lipase 31 U/L (13-60) 11/13/22 15:50 HCG, Qual Negative (Negative) 11/13/22 15:50 Urine Color Yellow (Yellow) 11/13/22 16:20 Urine Appearance Clear (CLEAR) 11/13/22 16:20 Urine pH 5 (5-7) 11/13/22 16:20 Ur Specific [place] 1.025 (1.005-1.030) 11/13/22 16:20 Urine Protein Neg (Negative) 11/13/22 16:20 Urine Glucose (UA) Norm (Normal) 11/13/22 16:20 Urine Ketones Negative (Negative) 11/13/22 16:20 Urine Blood Neg (Negative) 11/13/22 16:20 Urine Nitrate Negative (Negative) 11/13/22 16:20 Urine Bilirubin Neg (Negative) 11/13/22 16:20 Urine Urobilinogen Neg mg/dL (Negative) 11/13/22 16:20 Ur Leukocyte Esterase Negative (Negative) 11/13/22 16:20 Discharge Plan Discharge Patient Disposition: Placed in Observation Admit Provider: Lehman,David Clinical Impression: Acute appendicitis Discharge Diet: Usual diet Discharge Activity: Increase activity as tolerated Sign Out Sign Out Data: Patient Sign Out occurred on 11/13/22 at 17:02. Patient's care was discussed, and care was transferred from to Bakari Sullivan. 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[employer] Documented by User: ALFREDO Dunn 11/13/22 19:32 HPI - Abdominal Pain General: Chief Complaint: Abdominal Pain Stated Complaint: abd pain Time Seen by Provider: 11/13/22 16:09 PFSH ED PFSH: Medical History (Updated 11/13/22 @ 19:28 by ALFREDO Dunn) Estrogen receptor positive status [ER+] Fibromyalgia Fibromyalgia High risk medication use Hx of breast cancer Inflammatory arthritis Joint pain LUQ pain Malignant neoplasm of lower-outer quadrant of left female breast Muscle pain Peripheral neuropathy Skin lesion of face TMJ (sprain of temporomandibular joint) Surgical History H/O: hysterectomy History of delivery S/P mastectomy, bilateral Family History Mother Cancer Breast Father Cancer Breast, Leukemia, colon, Hypertension Other Lung disease Denies family history of Rheumatoid arthritis Diabetes Lupus Chronic kidney disease (CKD) Stroke Social History Smoking and tobacco status: never smoked Alcohol intake: current Alcohol intake frequency: holidays/special occasions only Substance/Drug Use: never Adopted: No Caregiver/support person: No Lives independently: Yes Marital status: Current gender identity: Female Course Vital Signs: Vital signs: Vital Signs Temperature 98.5 F 11/14/22 03:00 Pulse Rate 62 11/14/22 03:00 Respiratory Rate 16 11/14/22 06:16 Blood Pressure 101/68 11/14/22 03:00 Pulse Oximetry 98 11/14/22 03:00 Oxygen Delivery Me thod Room Air 11/14/22 03:00 MDM - Abdominal Pain Medical Decision Making Patient is a 47-year-old female comes to the ED with abdominal pain. Past surgical history of hysterectomy. Symptoms started around noon today. She says she ate a chip and some colvin dip and right after that she developed cute onset of right upper and right lower quadrant abdominal pain. Pain was severe and she was having nausea and vomiting. Pain has slowly improved since onset of symptoms and she rates the pain currently a 5 out of 10. She states that she vomited approximately 3 times since onset of symptoms. Denies any fevers, dysu leodan, hematuria, diarrhea, constipation or blood in stool. Vital stable. Patient appears nontoxic and in no acute distress. She has some generalized right-sided abdominal tenderness but rest of exam is benign. White blood cell count of 14.7 and a creatinine of 1.1 but the rest of CBC and CMP are unremarkable. Lipase normal at 31. UA is unremarkable. Patient was given 1 L of IV fluids and nausea meds. CT of abdomen pelvis is pending. Laboratory values shows a mild leukocytosis at 14,000, creatinine was 1.1. Remainder of labs were unremarkable. CT of the abdomen pelvis noting acute ap pendicitis. Evaluated patient she does have McBurney's point tenderness and decreased bowel sounds. Reviewed this with Dr. Ferreira who recommended consult Tatian with surgeon. Dr. Lehman was then consulted on and agreed to admission to observation with plan for surgery in the morning. Patient was given Zosyn on 3 times a day scheduling. Reviewed this with patient who agreed to plan. Lab Data 11/13/22 15:50 11/13/22 15:50 Labs/Radiology: Radiology Impressions Abdomen/Pelvis CT 11/13/22 16:55 IMPRESSION: 1. Appendix dilated to 10 mm with wall thickening and surrounding edema consistent with acute appendicitis. 2. Hepatic steatosis. 3. Splenic cyst. 4. Constipation. 5. Small hiatal hernia. ADDENDUM: 11/13/221937 THIS REPORT CONTAINS FINDINGS THAT MAY BE CRITICAL TO PATIENT CARE. Bakari Martin - Read report and has no questions at 7:36 PM CDT on 11/13/2022. Laboratory Results WBC 14.7 10^3/uL (4.0-10.0) H 11/13/22 15:50 RBC 4.92 10^6/uL (4.1-5.3) 11/13/22 15:50 Hgb 13.6 g/dL (11.5-15.3) 11/13/22 15:50 Hct 42.2 % (37.0-47.0) 11/13/22 15:50 MCV 85.8 fl (81-99) 11/13/22 15:50 MCH 27.6 pg (28.0-34.0) L 11/13/22 15:50 MCHC 32.2 g/dL (30.0-36.0) 11/13/22 15:50 RDW 14.2 % (12.1-15.1) 11/13/22 15:50 Plt Count 201 10^3/cmm (130-400) 11/13/22 15:50 MPV 11.1 fL (7.4-10.4) H 11/13/22 15:50 Neut % (Auto) 87.7 % 11/13/22 15:50 Lymph % (Auto) 7.8 % 11/13/22 15:50 [place] % (Auto) 3.5 % 11/13/22 15:50 Eos % (Auto) 0.2 % 11/13/22 15:50 Baso % (Auto) 0.4 % 11/13/22 15:50 Neut # (Auto) 12.91 10^3/uL (1.8-7.7) H 11/13/22 15:50 Lymph # (Auto) 1.2 10^3/uL (0.8-4.8) 11/13/22 15:50 [place] # (Auto) 0.5 10^3/uL (0.2-0.9) 11/13/22 15:50 Eos # (Auto) 0.0 10^3/uL (0.0-0.8) 11/13/22 15:50 Baso # (Auto) 0.1 10^3/uL (0.0-0.1) 11/13/22 15:50 Nucleated RBC % (auto) 0 % 11/13/22 15:50 Nucleated RBCs # 0.0 /100WBC 11/13/22 15:50 Sodium 140 mmol/L (136-145) 11/13/22 15:50 Potassium 3.5 mmol/L (3.5-5.1) 11/13/22 15:50 Chloride 101 mmol/L (98-107) 11/13/22 15:50 Carbon Dioxide 28 mmol/L (22-29) 11/13/22 15:50 Anion Gap 14.5 (5-19) 11/13/22 15:50 BUN 13 mg/dL (6-20) 11/13/22 15:50 Creatinine 1.1 mg/dL (0.5-0.9) H 11/13/22 15:50 GFR Calculation 53.7 mL/min (90-130) L 11/13/22 15:50 Glucose 131 mg/dL (65-115) H 11/13/22 15:50 Calculated Osmolality 292 mOsm/kg (285-295) 11/13/22 15:50 Calcium 9.6 mg/dL (8.5-10.5) 11/13/22 15:50 Total Bilirubin 0.3 mg/dL (0.15-1.2) 11/13/22 15:50 AST 28 U/L (0-32) 11/13/22 15:50 ALT 28 U/L (0-33) 11/13/22 15:50 Alkaline Phosphatase 96 U/L (35-105) 11/13/22 15:50 Total Protein 7.4 g/dL (6.6-8.7) 11/13/22 15:50 Albumin 4.5 g/dL (3.5-5.2) 11/13/22 15:50 Globulin 2.9 g/dL (1.3-4.6) 11/13/22 15:50 Lipase 31 U/L (13-60) 11/13/22 15:50 HCG, Qual Negative (Negative) 11/13/22 15:50 Urine Color Yellow (Yellow) 11/13/22 16:20 Urine Appearance Clear (CLEAR) 11/13/22 16:20 Urine pH 5 (5-7) 11/13/22 16:20 Ur Specific [place] 1.025 (1.005-1.030) 11/13/22 16:20 Urine Protein Neg (Negative) 11/13/22 16:20 Urine Glucose (UA) Norm (Normal) 11/13/22 16:20 Urine Ketones Negative (Negative) 11/13/22 16:20 Urine Blood Neg (Negative) 11/13/22 16:20 Urine Nitrate Negative (Negative) 11/13/22 16:20 Urine Bilirubin Neg (Negative) 11/13/22 16:20 Urine Urobilinogen Neg mg/dL (Negative) 11/13/22 16:20 Ur Leukocyte Esterase Negative (Negative) 11/13/22 16:20 Discharge Plan Discharge Patient Disposition: Placed in Observation Admit Provider: David Lehman Clinical Impression: Acute appendicitis Discharge Diet: Usual diet Discharge Activity: Increase activity as tolerated Sign Out Sign Out Data: Patient Sign Out occurred on 11/13/22 at 17:02. Patient's care was discussed, and care was transferred from to Bakari Sullivan. 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
--- NOTE | 2022-11-13 16:55 | CTR_ITS ---
PROCEDURE INFORMATION: Exam: CT Abdomen And Pelvis With Contrast Exam date and time: 11/13/2022 6:18 PM Age: 47 years old Clinical indication: Abdominal pain; Acute; Prior surgery; Surgery date: 6+ months; Surgery type: Hyst; Additional info: Right-sided abdominal pain with nausea vomiting TECHNIQUE: Imaging protocol: Computed tomography of the abdomen and pelvis with contrast. Radiation optimization: All CT scans at this facility use at least one of these dose optimization techniques: automated exposure control; mA and/or kV adjustment per patient size (includes targeted exams where dose is matched to clinical indication); or iterative reconstruction. Contrast material: OMNI 350; Contrast volume: 100 ml; Contrast route: INTRAVENOUS (IV); REPORTING DATA: Count of CT and Cardiac NM exams in prior 12 months: This patient has received 0 known CTs and 0 known cardiac nuclear medicine studies in the 12 months prior to the current study. COMPARISON: CT abdomen pelvis w con* 13000 11/29/2020 10:06 AM RADIATION DOSE METRICS: Total DLP (mGy-cm): 1092.25 FINDINGS: Liver: Hepatic steatosis. Gallbladder and bile ducts: Normal. No calcified stones. No ductal dilation. Pancreas: Normal. No ductal dilation. Spleen: Splenic cyst. Adrenal glands: Normal. No mass. Kidneys and ureters: Normal. No hydronephrosis. Stomach and bowel: Constipation. Small hiatal hernia. Appendix: Appendix dilated to 10 mm with wall thickening and surrounding edema consistent with acute appendicitis. Intraperitoneal space: Unremarkable. No free air. No significant fluid collection. Vasculature: Unremarkable. No abdominal aortic aneurysm. Lymph nodes: Unremarkable. No enlarged lymph nodes. Urinary bladder: Unremarkable as visualized. Reproductive: Unremarkable as visualized. Bones/joints: Unremarkable. No acute fracture. Soft tissues: Unremarkable. CT/CT abdomen pelvis w con* [id number] IMPRESSION: 1. Appendix dilated to 10 mm with wall thickening and surrounding edema consistent with acute appendicitis. 2. Hepatic steatosis. 3. Splenic cyst. 4. Constipation. 5. Small hiatal hernia.
[2022-11-13 16:57] LABS: Bilirubin Urine Neg (Negative); Blood Urine Neg (Negative); Glucose Urine UA Norm (Normal); Ketones Urine Negative (Negative); Leukocyte Esterase Urine Negative (Negative); Nitrate Urine Negative (Negative); Protein Urine Neg (Negative); Specific Gravity, Urine 1.025 (1.005-1.030); Urine Appearance Clear (CLEAR); Urine Color Yellow (Yellow); Urobilinogen Urine Neg (Negative); pH Urine 5 (5-7)
[2022-11-13] MEDS: sodium chloride 0.9% 1,000 ML 999 ML IV (17:34)
[2022-11-13] MEDS: ondansetron 2 mg/ML SDV 2 mL 4 MG IVP (17:34)
[2022-11-13] MEDS: iohexol 350 mg/mL 500 mL Btl (per mL) IV (18:22)
[2022-11-13] MEDS: piperacillin-tazobactam 4.5 GM in sodium chloride 0.9% (plus) 50 ML IV (19:58)
[2022-11-13] MEDS: HYDROcodone-acetaminophen 5-325 mg Tablet 1 TAB PO (21:44)
[2022-11-13] MEDS: pregabalin 50 mg Capsule 100 MG PO (21:44)
[2022-11-14] VITALS (18 sets, daily range): BP systolic 101–158; BP diastolic 67–91; PULSE 61–79; RESP 12–20; TEMP 36.3–37; O2SAT 93–98
[2022-11-14] MEDS: sodium chloride 0.9% 1,000 ML 125 ML IV ×2 (00:44→08:54)
[2022-11-14] MEDS: piperacillin-tazobactam 3.375 GM in sodium chloride 0.9% (plus) 50 ML IV ×2 (03:30→13:20)
[2022-11-14] MEDS: HYDROmorphone 1 mg/mL INJ 1 mL IVP (06:16)
[2022-11-14] MEDS: diphenhydrAMINE 50 mg/mL SDV 1mL 12.5 MG IVP (11:56)
[2022-11-14] MEDS: scopolamine 1.5 Patch 1 PATCH TRANSDERMA (11:56)
[2022-11-14] MEDS: ondansetron 2 mg/ML SDV 2 mL 4 MG IVP (11:56)
--- NOTE | 2022-11-14 12:48 | PM.HP ---
Providers/Chief Complaint Admitting Physician: David Lehman DO Primary Care Provider: Harley Casiano DO Chief Complaint: abd pain History of Present Illness Priyanka Cali is a 47 year old female who presented to the ER with a 1 day history of abdominal pain. She reports that her pain is left lower quadrant and right lower quadrant. She had some nausea and emesis but denies hematemesis. Denies any fever, diarrhea, constipation, hematochezia and/or melena. CT is positive for acute appendicitis. Review of Systems General: Reports: 10 or more systems reviewed and unremarkable except in HPI and below Medications/Allergies Home Medications Medication Instructions Recorded Confirmed Last Taken Type acetaminophen 650 mg 650 mg PO Q8H PRN TMJ pain #30 tabs 04/03/22 11/13/22 Unknown Rx tablet,extended release lisinopril 40 mg tablet See Rx Instructions .Route 08/30/22 11/13/22 11/13/22 08:00 Rx .COMPLEX #90 tabs cholecalciferol (vitamin D3) 50 50 mcg PO DAILY #30 caps 09/24/22 11/13/22 11/13/22 08:00 Rx mcg (2,000 unit) capsule duloxetine 60 mg capsule,delayed See Rx Instructions .Route 09/24/22 11/13/22 11/13/22 08:00 Rx release .COMPLEX #30 caps hydroxychloroquine 200 mg tablet 200 mg PO BID #60 tabs 09/24/22 11/13/22 11/13/22 08:00 Rx leflunomide 20 mg tablet See Rx Instructions .Route 09/24/22 11/13/22 11/13/22 08:00 Rx .COMPLEX #30 tabs pantoprazole 40 mg tablet,delayed See Rx Instructions .Route 09/24/22 11/13/22 11/13/22 08:00 Rx release .COMPLEX #90 tabs pregabalin 100 mg capsule (Lyrica) 100 mg PO BID #60 caps 09/24/22 11/13/22 11/13/22 20:00 Rx chlorthalidone 25 mg tablet See Rx Instructions .Route 09/25/22 11/13/22 11/13/22 08:00 Rx .COMPLEX #90 tabs levothyroxine 100 mcg tablet See Rx Instructions .Route 11/13/22 11/13/22 11/13/22 08:00 Rx .COMPLEX #30 tabs prednisone 5 mg tablet 5 mg PO DAILY PRN fibromyalgia 11/13/22 11/13/22 Unknown History Allergies Allergy/AdvReac Type Severity Reaction Status Date / Time adhesive Allergy Rash Verified 11/13/22 22:11 dicloxacillin Allergy ALGY-Hives Verified 11/13/22 22:11 nitrofurantoin Allergy ALGY-Rash Verified 11/13/22 22:11 PFSH Acute PFSH: Medical History Estrogen receptor positive status [ER+] Fibromyalgia Fibromyalgia High risk medication use Hx of breast cancer Inflammatory arthritis Joint pain LUQ pain Malignant neoplasm of lower-outer quadrant of left female breast Muscle pain Peripheral neuropathy Skin lesion of face TMJ (sprain of temporomandibular joint) Surgical History H/O: hysterectomy History of delivery S/P mastectomy, bilateral Family History Mother Cancer Breast Father Cancer Breast, Leukemia, colon, Hypertension Other Lung disease Denies family history of Rheumatoid arthritis Diabetes Lupus Chronic kidney disease (CKD) Stroke Social History Smoking and tobacco status: never smoked Alcohol intake: current Alcohol intake frequency: holidays/special occasions only Substance/Drug Use: never Adopted: No Caregiver/support person: No Lives independently: Yes Marital status: Current gender identity: Female Female Reproductive History: Spontaneous abortions: No Vitals/I&O/Wt Last Vital Signs Temp 98 F 11/14/22 11:32 Pulse 66 11/14/22 11:32 Resp 18 11/14/22 11:32 BP 145/88 11/14/22 11:32 Pulse Ox 95 11/14/22 11:32 O2 Del Method Room Air 11/14/22 11:32 11/13/22 11/14/22 11/14/22 22:59 06:59 14:59 Intake Total 1050 / 1050 1000 / 1000 Balance 1050 / 1050 1000 / 1000 Weight last 48 hrs Weight 234 lb 3 oz Weight 220 lb Physical Exam Narrative: General : Patient is well developed , no acute distress, oriented x3 Head : Normal cephalic, a-traumatic. Ears : Pinnae and external canal are normal. Hearing is normal. Eyes : PERRLA, Sclera and injection are normal. No conjunctival discharge. Nose : Mucous membranes are without erythema. Throat : buccal mucosa is normal, gums are without significant recession or hypertrophy. Lungs : Equal chest rise bilaterally, no use of accessory muscles, trachea is midline. Cor : Rate and rhythm are normal. Abdomen : Soft, ND, tender palpation right lower quadrant, negative Rovsing's, no g/r/m Extremities : No edema, no cyanosis or clubbing, dorsalis pedis pulses are present bilaterally, non-tender to palpation of calves. Upper extremities are normal bilaterally. Back : non-tender to palpation, no CVA tenderness. Neuro : CN II - XII intact, Upper and lower extremities have equal and full strength Data 11/13/22 15:50 11/13/22 15:50 A&P Assessment and plan (1) Acute appendicitis: Plan Laparoscopic Appendectomy The risks and benefits of the procedure, including but not limited to, bleeding, infection, scar, numbness, pain, damage to surrounding structures, conversion to an open procedure, were explained to the patient. He is understanding of the risks and wishes to proceed. Attestations Medical Necessity Statement*: Patient requires at least 1 night in the hospital for IV antibiotics following laparoscopic appendectomy Coding Level of Care Code Acute Code for [facility] Diagnoses Acute appendicitis K35.80
[2022-11-14] MEDS: lidocaine 2% INJ 20 mL MDV (mL) INJECTION (13:31)
--- NOTE | 2022-11-14 13:48 | P.OP_ITS ---
Operative Report Date of procedure: November 14, 2022 Pre-op diagnosis: Acute appendicitis Post-op diagnosis: same Procedure done: Laparoscopic appendectomy Implants: None Specimens removed/disposition: Appendix Surgeon: Dr. David Lehman DO Anesthesia: General Estimated blood loss (mL): 5 Complications: None apparent Brief History: This is a very pleasant 47-year-old female who was diagnosed with acute appendicitis. Laparoscopic appendectomy was indicated. The risk and benefits were explained and documented. Procedure: Patient was wheeled into the operative room and placed on the OR table in a supine position. Abdomen was inspected prepped and draped in usual sterile fashion. Time-out was performed and all present were in agreement. A 15 blade scalp was used to make a stab incision in the left upper quadrant and intra- abdominal insufflation was achieved using a Veress needle. After localizing the tissue incisions were made and a 12 millimeter trocar was placed into the umbilicus as well as a 5mm in the right lower quadrant and a 5 mm in the left lower quadrant . The appendix was identified and was mildly inflamed. I used the Voyant to ligate the mesoappendix at the base. I then used 2 PDS endo-loops to snare the base of the appendix. I then used the Voyant to ligate the appendix distally. The appendix was removed from the abdomen using an Endo- Catch bag through the umbilical incision. I examined the abdomen and no further pathology was identified. Hemostasis was noted. I then closed the umbilical site with a Lionel-Velvet and 0 Vicryl suture in a figure of 8 fashion. All ports removed. Skin was washed and dried. Incisions were closed with 4 O Vicryl in a subcuticular interrupted fashion. Skin glue was applied. Patient tolerated the procedure well.
--- NOTE | 2022-11-14 14:46 | P.ANESASSM_ITS ---
Pre-Anesthetic Assessment Height/Weight: Height 1.63 m Weight 106.226 kg Temp Pulse Resp BP Pulse Ox O2 Del Method O2 Flow Rate 97.4 F L 64 13 151/91 96 Room Air 2 11/14/22 14:35 11/14/22 14:35 11/14/22 14:35 11/14/22 14:35 11/14/22 14:35 11/14/22 14:35 11/14/22 14:30 Operation Date: 11/14/22 12:00 Proposed Procedures p Laparoscopic Appendectomy(Not Applicable) - David Lehman DO Familial anesthetic complications: PONV Was Beta Justine taken within 24 hours: N/A Was Clonidine taken within 24 hours: N/A Last intake: Intake Last Liquid Date 11/13/22 Last Liquid Time 12:00 Last Solid Date 11/13/22 Last Solid Time 12:00 Social No alcohol and No tobacco CV/HEM Hypertension GI Gastroesophageal Reflux Disease Metabolic Morbid Obesity and Thyroid Disease [facility] [place] Fibromyalgia and Rheumatoid Arthritis Neuropsych Anxiety, Depression and Neuropathy Anesthetic Plan ASA status: 3 Anesthesia: General Medications/Allergies Home Medications Medication Instructions Recorded Confirmed Last Taken Type acetaminophen 650 mg 650 mg PO Q8H PRN TMJ pain #30 tabs 04/03/22 11/13/22 Unknown Rx tablet,extended release lisinopril 40 mg tablet See Rx Instructions .Route 08/30/22 11/13/22 11/13/22 08:00 Rx .COMPLEX #90 tabs cholecalciferol (vitamin D3) 50 50 mcg PO DAILY #30 caps 09/24/22 11/13/22 11/13/22 08:00 Rx mcg (2,000 unit) capsule duloxetine 60 mg capsule,delayed See Rx Instructions .Route 09/24/22 11/13/22 11/13/22 08:00 Rx release .COMPLEX #30 caps hydroxychloroquine 200 mg tablet 200 mg PO BID #60 tabs 09/24/22 11/13/22 11/13/22 08:00 Rx leflunomide 20 mg tablet See Rx Instructions .Route 09/24/22 11/13/22 11/13/22 08:00 Rx .COMPLEX #30 tabs pantoprazole 40 mg tablet,delayed See Rx Instructions .Route 09/24/22 11/13/22 11/13/22 08:00 Rx release .COMPLEX #90 tabs pregabalin 100 mg capsule (Lyrica) 100 mg PO BID #60 caps 09/24/22 11/13/22 11/13/22 20:00 Rx chlorthalidone 25 mg tablet See Rx Instructions .Route 09/25/22 11/13/22 11/13/22 08:00 Rx .COMPLEX #90 tabs levothyroxine 100 mcg tablet See Rx Instructions .Route 11/13/22 11/13/22 11/13/22 08:00 Rx .COMPLEX #30 tabs prednisone 5 mg tablet 5 mg PO DAILY PRN fibromyalgia 11/13/22 11/13/22 Unknown History Allergies Allergy/AdvReac Type Severity Reaction Status Date / Time adhesive Allergy Rash Verified 11/13/22 22:11 dicloxacillin Allergy ALGY-Hives Verified 11/13/22 22:11 nitrofurantoin Allergy ALGY-Rash Verified 11/13/22 22:11 Current Medications Generic Name Dose Route Start Last Admin Trade Name Freq PRN Reason Stop Dose Admin Diphenhydramine HCl 12.5 mg 11/14/22 11:42 11/14/22 11:56 Diphenhydramine 50 Mg/Ml Sdv 1ml IVP 12.5 mg ONCE PRN Administration PONV Hydromorphone HCl 1 mg 11/14/22 00:27 11/14/22 06:16 Hydromorphone 1 Mg/Ml Inj 1 Ml IVP 1 mg Q3H PRN Administration PAIN Piperacillin Sod/Tazobactam 50 mls @ 12.5 mls/hr 11/14/22 03:30 11/14/22 03:30 Sod 3.375 gm/ Sodium Chloride IV 12.5 mls/hr Q8H JEREMIAH Administration Protocol Sodium Chloride 1,000 mls @ 125 mls/hr 11/14/22 00:30 11/14/22 08:54 Sodium Chloride 0.9% IV 125 mls/hr .Q8H JEREMIAH Administration Ondansetron HCl 4 mg 11/14/22 11:42 11/14/22 11:56 Ondansetron 2 Mg/Ml Sdv 2 Ml IVP 4 mg ONCE PRN Administration NAUSEA AND VOMITING PFSH Anesthesia Medical History Estrogen receptor positive status [ER+] Fibromyalgia Fibromyalgia High risk medication use Hx of breast cancer Inflammatory arthritis Joint pain LUQ pain Malignant neoplasm of lower-outer quadrant of left female breast Muscle pain Peripheral neuropathy Skin lesion of face TMJ (sprain of temporomandibular joint) Surgical History H/O: hysterectomy History of delivery S/P mastectomy, bilateral Family History Mother Cancer Breast Father Cancer Breast, Leukemia, colon, Hypertension Other Lung disease Denies family history of Rheumatoid arthritis Diabetes Lupus Chronic kidney disease (CKD) Stroke Social History Smoking and tobacco status: never smoked Alcohol intake: current Alcohol intake frequency: holidays/special occasions only Substance/Drug Use: never Adopted: No Caregiver/support person: No Lives independently: Yes Marital status: Current gender identity: Female Female Reproductive History Spontaneous abortions: No Data Anesthesia 11/13/22 15:50 11/13/22 15:50 Short CBC 11/13/22 Range/Units 15:50 WBC 14.7 H (4.0-10.0) 10^3/uL Hgb 13.6 (11.5-15.3) g/dL Hct 42.2 (37.0-47.0) % MCV 85.8 (81-99) fl Plt Count 201 (130-400) 10^3/cmm Neut % (Auto) 87.7 % Neut # (Auto) 12.91 H (1.8-7.7) 10^3/uL BMP 11/13/22 15:50 Sodium 140 Potassium 3.5 Chloride 101 Carbon Dioxide 28 BUN 13 Creatinine 1.1 H Glucose 131 H Calcium 9.6 Liver Function 11/13/22 Range/Units 15:50 Total Bilirubin 0.3 (0.15-1.2) mg/dL AST 28 (0-32) U/L ALT 28 (0-33) U/L Alkaline Phosphatase 96 (35-105) U/L Albumin 4.5 (3.5-5.2) g/dL Urine 11/13/22 Range/Units 16:20 Urine Color Yellow (Yellow) Urine Appearance Clear (CLEAR) Urine pH 5 (5-7) Ur Specific [place] 1.025 (1.005-1.030) Urine Protein Neg (Negative) Urine Glucose (UA) Norm (Normal) Urine Ketones Negative (Negative) Urine Nitrate Negative (Negative) Urine Bilirubin Neg (Negative) Ur Leukocyte Esterase Negative (Negative) Cardiac Studies: No Data to Display
--- NOTE | 2022-11-14 15:17 | PM.DCS ---
Discharge Providers Date of Admission: 11/13/22 21:48 Date of Discharge: November 14, 2022 Attending Provider at Admission: David Lehman DO Attending Provider at Discharge: David Lehman DO Primary Care Provider: Harley Casiano DO Diagnoses at Discharge Discharge Diagnosis (1) Acute appendicitis: Status: Acute Reason for Visit Reason for Visit: abd pain Hospital Course Hospital Course This is a very pleasant 47-year-old female who presented to the hospital with abdominal pain. She was diagnosed with acute appendicitis. She underwent an uneventful laparoscopic appendectomy and was discharged home in good condition. Physical Exam Narrative: General : Patient is well developed , no acute distress, oriented x3 Head : Normal cephalic, a-traumatic. Ears : Pinnae and external canal are normal. Hearing is normal. Eyes : PERRLA, Sclera and injection are normal. No conjunctival discharge. Nose : Mucous membranes are without erythema. Throat : buccal mucosa is normal, gums are without significant recession or hypertrophy. Lungs : Equal chest rise bilaterally, no use of accessory muscles, trachea is midline. Cor : Rate and rhythm are normal. Abdomen : Soft, ND, appropriately tender, no g/r/m Incisions intact without erythema or exudate Extremities : No edema, no cyanosis or clubbing, dorsalis pedis pulses are present bilaterally, non-tender to palpation of calves. Upper extremities are normal bilaterally. Back : non-tender to palpation, no CVA tenderness. Neuro : CN II - XII intact, Upper and lower extremities have equal and full strength Discharge Data Studies Completed and Pending Completed Studies During Hospitalization Category Date Time Status CT abdomen pelvis w con* [id number] Stat Cat Scan 11/13/22 16:55 Completed Pending at discharge Category Date Time Status Pathology: Surgical [PTH] Routine Pth 11/14/22 13:52 Ordered Radiology Impressions Abdomen/Pelvis CT 11/13/22 16:55 IMPRESSION: 1. Appendix dilated to 10 mm with wall thickening and surrounding edema consistent with acute appendicitis. 2. Hepatic steatosis. 3. Splenic cyst. 4. Constipation. 5. Small hiatal hernia. ADDENDUM: 11/13/221937 THIS REPORT CONTAINS FINDINGS THAT MAY BE CRITICAL TO PATIENT CARE. Bakari Martin - Read report and has no questions at 7:36 PM CDT on 11/13/2022. Laboratory Results WBC 14.7 10^3/uL (4.0-10.0) H 05/09/23 15:50 RBC 4.92 10^6/uL (4.1-5.3) 11/13/22 15:50 Hgb 13.6 g/dL (11.5-15.3) 11/13/22 15:50 Hct 42.2 % (37.0-47.0) 11/13/22 15:50 MCV 85.8 fl (81-99) 11/13/22 15:50 MCH 27.6 pg (28.0-34.0) L 11/13/22 15:50 MCHC 32.2 g/dL (30.0-36.0) 11/13/22 15:50 RDW 14.2 % (12.1-15.1) 11/13/22 15:50 Plt Count 201 10^3/cmm (130-400) 11/13/22 15:50 MPV 11.1 fL (7.4-10.4) H 11/13/22 15:50 Neut % (Auto) 87.7 % 11/13/22 15:50 Lymph % (Auto) 7.8 % 11/13/22 15:50 [place] % (Auto) 3.5 % 11/13/22 15:50 Eos % (Auto) 0.2 % 11/13/22 15:50 Baso % (Auto) 0.4 % 11/13/22 15:50 Neut # (Auto) 12.91 10^3/uL (1.8-7.7) H 11/13/22 15:50 Lymph # (Auto) 1.2 10^3/uL (0.8-4.8) 11/13/22 15:50 [place] # (Auto) 0.5 10^3/uL (0.2-0.9) 11/13/22 15:50 Eos # (Auto) 0.0 10^3/uL (0.0-0.8) 11/13/22 15:50 Baso # (Auto) 0.1 10^3/uL (0.0-0.1) 11/13/22 15:50 Nucleated RBC % (auto) 0 % 11/13/22 15:50 Nucleated RBCs # 0.0 /100WBC 11/13/22 15:50 Sodium 140 mmol/L (136-145) 11/13/22 15:50 Potassium 3.5 mmol/L (3.5-5.1) 11/13/22 15:50 Chloride 101 mmol/L (98-107) 11/13/22 15:50 Carbon Dioxide 28 mmol/L (22-29) 11/13/22 15:50 Anion Gap 14.5 (5-19) 11/13/22 15:50 BUN 13 mg/dL (6-20) 11/13/22 15:50 Creatinine 1.1 mg/dL (0.5-0.9) H 11/13/22 15:50 GFR Calculation 53.7 mL/min (90-130) L 11/13/22 15:50 Glucose 131 mg/dL (65-115) H 11/13/22 15:50 Calculated Osmolality 292 mOsm/kg (285-295) 11/13/22 15:50 Calcium 9.6 mg/dL (8.5-10.5) 11/13/22 15:50 Total Bilirubin 0.3 mg/dL (0.15-1.2) 11/13/22 15:50 AST 28 U/L (0-32) 11/13/22 15:50 ALT 28 U/L (0-33) 11/13/22 15:50 Alkaline Phosphatase 96 U/L (35-105) 11/13/22 15:50 Total Protein 7.4 g/dL (6.6-8.7) 11/13/22 15:50 Albumin 4.5 g/dL (3.5-5.2) 11/13/22 15:50 Globulin 2.9 g/dL (1.3-4.6) 11/13/22 15:50 Lipase 31 U/L (13-60) 11/13/22 15:50 HCG, Qual Negative (Negative) 11/13/22 15:50 Urine Color Yellow (Yellow) 11/13/22 16:20 Urine Appearance Clear (CLEAR) 11/13/22 16:20 Urine pH 5 (5-7) 11/13/22 16:20 Ur Specific [place] 1.025 (1.005-1.030) 11/13/22 16:20 Urine Protein Neg (Negative) 11/13/22 16:20 Urine Glucose (UA) Norm (Normal) 11/13/22 16:20 Urine Ketones Negative (Negative) 11/13/22 16:20 Urine Blood Neg (Negative) 11/13/22 16:20 Urine Nitrate Negative (Negative) 11/13/22 16:20 Urine Bilirubin Neg (Negative) 11/13/22 16:20 Urine Urobilinogen Neg mg/dL (Negative) 11/13/22 16:20 Ur Leukocyte Esterase Negative (Negative) 11/13/22 16:20 Procedures Performed Laparoscopic appendectomy Vitals Last Vital Signs Temp 97.6 F 11/14/22 14:45 Pulse 67 11/14/22 14:45 Resp 14 11/14/22 14:45 BP 131/74 11/14/22 14:45 Pulse Ox 94 11/14/22 14:45 O2 Del Method Room Air 11/14/22 14:40 O2 Flow Rate 2 11/14/22 14:30 Discharge Plan Discharge Patient Disposition: Home Condition: Stable Prescriptions: New hydrocodone-acetaminophen 5-325 mg tablet 1 tab PO Q6H PRN (Reason: pain) Qty: 20 0RF amoxicillin-pot clavulanate 875-125 mg tablet 1 tab PO BID Qty: 14 0RF DOK 100 mg capsule 100 mg PO BID Qty: 14 0RF Continued pregabalin [Lyrica] 100 mg capsule 100 mg PO BID Qty: 60 3RF cholecalciferol (vitamin D3) 50 mcg (2,000 unit) capsule 50 mcg PO DAILY Qty: 30 3RF duloxetine 60 mg capsule,delayed release(DR/EC) See Rx Instructions .ROUTE .COMPLEX Qty: 30 3RF Dose Instruction: take 1 capsule BY MOUTH EVERY DAY Rx Instructions: take 1 capsule BY MOUTH EVERY DAY hydroxychloroquine 200 mg tablet 200 mg PO BID Qty: 60 3RF leflunomide 20 mg tablet See Rx Instructions .ROUTE .COMPLEX Qty: 30 3RF Dose Instruction: TAKE 1 TABLET BY MOUTH EVERY DAY Rx Instructions: TAKE 1 TABLET BY MOUTH EVERY DAY pantoprazole 40 mg tablet,delayed release (DR/EC) See Rx Instructions .ROUTE .COMPLEX Qty: 90 1RF Dose Instruction: TAKE 1 TABLET BY MOUTH EVERY MORNING 30 minutes before meal Rx Instructions: TAKE 1 TABLET BY MOUTH EVERY MORNING 30 minutes before meal lisinopril 40 mg tablet See Rx Instructions .ROUTE .COMPLEX Qty: 90 0RF Dose Instruction: TAKE 1 TABLET BY MOUTH EVERY DAY Rx Instructions: TAKE 1 TABLET BY MOUTH EVERY DAY chlorthalidone 25 mg tablet See Rx Instructions .ROUTE .COMPLEX Qty: 90 1RF Dose Instruction: TAKE 1 TABLET BY MOUTH EVERY DAY Rx Instructions: TAKE 1 TABLET BY MOUTH EVERY DAY levothyroxine 100 mcg tablet See Rx Instructions .ROUTE .COMPLEX Qty: 30 0RF Dose Instruction: TAKE 1 TABLET BY MOUTH EVERY DAY Rx Instructions: TAKE 1 TABLET BY MOUTH EVERY DAY prednisone 5 mg tablet 5 mg PO DAILY PRN (Reason: fibromyalgia) Held acetaminophen 650 mg tablet extended release 650 mg PO Q8H PRN (Reason: TMJ pain) Qty: 30 0RF Hold Instructions: Resume on 11/19/22. Discharge Orders: Discharge Order (Routine); Ordered 11/14/22 Ordered By: David Lehman Referrals: Harley Casiano DO [Primary Care Provider] - 12/05/22 9:00 am David Lehman DO [Physician] - 2 weeks Discharge Diet: Usual diet Discharge Activity: Increase activity as tolerated Patient Instructions: Appendicitis (GEN), Opioid Safety, Post Anesthesia Care Activity Restrictions/Additional Instructions: Do not soak incisionS underwater for 2 weeks. Shower daily. Discharge Attestations Time Spent in Discharge Care*: less than 30 min Quality Metrics Clinical Quality Measures [ No reported AMI, CVA or VTE this stay] Coding Level of Care Code Acute Code for [facility] Diagnoses Acute appendicitis K35.80
--- NOTE | 2022-11-14 15:34 | ANE.PACU2 ---
Inpatient post-anesthesia follow up: Airway intact: Yes Vital signs: Temperature 97.6 F Pulse Rate 67 Respiratory Rate 14 Blood Pressure 131/74 Pulse Oximetry 94 Oxygen Delivery Me thod Room Air Oxygen Flow Rate 2 Fraction of Inspir ed Oxygen Hydration adequate: Yes Nausea and vomiting: No Pain level: 3 Mental status: Baseline
--- NOTE | 2022-11-14 17:26 | PC.NURSE ---
Discussed discharge medications, continued medications, follow up appointments and restrictions with patient. Verbalized understanding.
== END 2022-11-14 17:22 | disposition home or self-care (01) ==
LOC: ER 21:21 → MEDSURG 21:48
PROVIDERS: Emergency Medicine; Admitting Provider Surgery; Emergency Provider Nurse Practitioner Family; PCP Family Medicine; Visit Provider Surgery
PROC: 0DTJ4ZZ Resection of Appendix, Percutaneous Endoscopic Approach (ICD-10-PCS; CPT 44970; principal; 2022-11-14 12:00)
DX: K35.80 Unspecified acute appendicitis (principal); I10 Essential (primary) hypertension; E07.9 Disorder of thyroid, unspecified; K21.9 Gastro-esophageal reflux disease without esophagitis; M06.9 Rheumatoid arthritis, unspecified; E66.01 Morbid (severe) obesity due to excess calories; Z68.41 Body mass index [BMI] 40.0-44.9, adult; Z79.899 Other long term (current) drug therapy; Z88.0 Allergy status to penicillin; Z90.710 Acquired absence of both cervix and uterus
CPT/HCPCS: 44970; 36415; 74177; 80053; 81003; 83690; 84703; 85025; 88304; 96361; 96365; 96366; 96375; 99285; G0378; J1100; J1170; J1200; J2250; J2405; J2543; J2704; J2710; J3010; J3490; J7030; Q9967

== ENCOUNTER 2022-11-29 10:16 | Outpatient (CLI) | payer OTHER, SELFPAY ==
--- NOTE | 2022-11-29 10:15 | US_ITS ---
WS: [id number] ULTRASOUND THYROID TECHNIQUE: Ultrasound of the thyroid. CLINICAL INFORMATION: Concern for thyroid nodule. COMPARISON: None. FINDINGS: Thyroid: Somewhat small heterogeneous thyroid. No thyroid nodules are present. Right thyroid lobe: 2.9 cm x 1.2 cm x 1.1 cm Left thyroid lobe: 2.5 cm x 1.0 cm x 0.9 cm. Isthmus: 0.4 mm. Cervical lymphadenopathy: None. US/US thyroid [id number] IMPRESSION: 1. Small volume thyroid for patient this age. Heterogeneous thyroid echotextur e. 2. No suspicious nodules to target for biopsy.
== END 2022-11-29 10:17 | disposition home or self-care (01) ==
PROVIDERS: PCP Family Medicine; Visit Provider Family Medicine
DX: E03.9 Hypothyroidism, unspecified (principal)
CPT/HCPCS: 76536

== ENCOUNTER → 2022-12-20 12:16 | Outpatient (BNVA) | payer OTHER, SELFPAY | PROVIDERS: PCP Family Medicine; Visit Provider Internal Medicine Rheumatology | DX: M19.90 Unspecified osteoarthritis, unspecified site (principal); Z79.899 Other long term (current) drug therapy | CPT/HCPCS: 80076; 82565; 85025; 86140 ==

== ENCOUNTER → 2023-03-05 08:45 | Outpatient (BNVA) | payer OTHER, SELFPAY | PROVIDERS: PCP Family Medicine; Visit Provider Family Medicine | DX: M10.9 Gout, unspecified (principal); G62.9 Polyneuropathy, unspecified; M79.7 Fibromyalgia; M19.90 Unspecified osteoarthritis, unspecified site; R76.8 Other specified abnormal immunological findings in serum; K21.9 Gastro-esophageal reflux disease without esophagitis; H54.7 Unspecified visual loss; Z71.3 Dietary counseling and surveillance; Z68.41 Body mass index [BMI] 40.0-44.9, adult | CPT/HCPCS: 80053; 82607; 82746; 83036; 84443; 84550 ==

== ENCOUNTER 2023-04-19 08:03 | Day surgery (SDC) | payer OTHER, SELFPAY ==
[2023-04-19 08:31] VITALS: BP 118/94; PULSE 80; RESP 16; TEMP 35.7; BMI 35.6
--- NOTE | 2023-04-19 08:37 | ANES.PREANE2 ---
Pre-Anesthetic Assessment Height/Weight: Height 1.63 m Weight 94.347 kg Temp Pulse Resp BP O2 Del Method O2 Flow Rate 96.3 F L 80 16 118/94 Room Air 94 04/19/23 08:31 04/19/23 08:31 04/19/23 08:31 04/19/23 08:31 04/19/23 08:31 04/19/23 08:31 Preop Diagnosis: Gerd Operation Date: 04/19/23 09:00 Proposed Procedures p EGD [id number]<k21.9(Not Applicable) - David Lehman DO Familial anesthetic complications: nausea with general anesthesia Was Beta Justine taken within 24 hours: N/A Was Clonidine taken within 24 hours: N/A Last intake: Intake Last Liquid Date 04/18/23 Last Liquid Time 21:00 Last Solid Date 04/18/23 Last Solid Time 19:00 Social Alcohol and No tobacco Exam alert, oriented x 3, clear to auscultation bilaterally and regular rate & rhythm Airway Submandibular: within normal limits Cervical ROM: within normal limits Mallampati: Class I Dentition: full Pulmonary None reported CV/HEM Myocardial Infarction Chronic Renal Insufficiency kidney numbers going up Hepatic None reported GI Gastroesophageal Reflux Disease Metabolic Thyroid Disease [facility] [place] Fibromyalgia Neuropsych None reported Anesthetic Plan ASA status: 3 Anesthesia: MAC Risk of > 500 ml blood loss (7ml/kg in children): No Medications/Allergies Home Medications Medication Instructions Recorded Confirmed Last Taken Type prednisone 5 mg tablet 5 mg PO DAILY PRN fibromyalgia 11/13/22 04/17/23 4 Months Ago History ~12/16/22 cholecalciferol (vitamin D3) 50 50 mcg PO DAILY #90 caps 01/16/23 04/19/23 04/18/23 Rx mcg (2,000 unit) capsule hydroxychloroquine 200 mg tablet 200 mg PO BID #180 tabs 01/16/23 04/19/23 04/18/23 Rx pregabalin 100 mg capsule (Lyrica) 100 mg PO BID #60 caps 01/16/23 04/19/23 04/18/23 Rx allopurinol 100 mg tablet 100 mg PO BID 03/05/23 04/19/23 04/18/23 History pantoprazole 40 mg tablet,delayed 40 mg PO BID 03/05/23 04/19/23 04/18/23 History release semaglutide 0.25 mg or 0.5 mg (2 2 mg (2.944 mL) SUBCUT .Weekly #3 03/05/23 04/17/23 04/10/23 Rx mg/3 mL) subcutaneous pen injector mL (Ozempic) chlorthalidone 25 mg tablet 25 mg PO DAILY 04/17/23 04/19/23 04/18/23 History duloxetine 60 mg capsule,delayed 60 mg PO DAILY 04/17/23 04/19/23 04/18/23 History release leflunomide 20 mg tablet 20 mg PO DAILY 04/17/23 04/19/23 04/18/23 History levothyroxine 100 mcg tablet 100 mcg PO DAILY 04/17/23 04/19/23 04/18/23 History lisinopril 40 mg tablet 40 mg PO DAILY 04/17/23 04/19/23 04/18/23 History Allergies Allergy/AdvReac Type Severity Reaction Status Date / Time adhesive Allergy Rash Verified 04/17/23 09:56 dicloxacillin Allergy ALGY-Hives Verified 04/17/23 09:56 nitrofurantoin Allergy ALGY-Rash Verified 04/17/23 09:56 [facility] Anesthesia Medical History Estrogen receptor positive status [ER+] Fibromyalgia Fibromyalgia High risk medication use Hx of breast cancer Inflammatory arthritis Joint pain LUQ pain Malignant neoplasm of lower-outer quadrant of left female breast Muscle pain Peripheral neuropathy Skin lesion of face TMJ (sprain of temporomandibular joint) Surgical History H/O: hysterectomy History of delivery Hx of appendectomy 11/14/22 Dr. Lehman Hx of colonoscopy 3 yrs ago S/P mastectomy, bilateral Family History Mother Cancer Breast Father Cancer Breast, Leukemia, colon, Hypertension Other Lung disease Denies family history of Rheumatoid arthritis Diabetes Lupus Chronic kidney disease (CKD) Stroke Social History Smoking and tobacco/nicotine status: never used tobacco/nicotine Alcohol intake: current Alcohol intake frequency: holidays/special occasions only Substance/Drug Use: never Adopted: No Caregiver/support person: No Lives independently: Yes Marital status: Current gender identity: Female Female Reproductive History Spontaneous abortions: No Data Anesthesia Cardiac Studies: No Data to Display
--- NOTE | 2023-04-19 08:52 | W.PM.OPSUD ---
Surgery/Procedure H&P Update DATE OF PROCEDURE: April 19, 2023 DATE H&P PERFORMED: 03/26/23 H&P UPDATE INFORMATION: I have reviewed H&P completed within last 30 days, I have examined patient prior to procedure and No changes to prior documentation PREOP DIAGNOSIS: Gerd PLANNED PROCEDURE: Operation Date: 04/19/23 09:00 Proposed Procedures p EGD [id number]<k21.9(Not Applicable) - David Lehman, DO
[2023-04-19] MEDS: sodium chloride 0.9% 1,000 ML 30 ML IV (09:06)
[2023-04-19 09:29] LABS: Glucose Point of Care 85 mg/dL (70-110)
[2023-04-19 09:58] VITALS: BP 89/61; PULSE 78; RESP 20; TEMP 36.1; O2SAT 97
--- NOTE | 2023-04-19 13:50 | ANE.PACU2 ---
Inpatient post-anesthesia follow up: Airway intact: Yes Vital signs: Temperature 97.0 F Pulse Rate 78 Respiratory Rate 20 Blood Pressure 89/61 Pulse Oximetry 97 Oxygen Delivery Me thod Room Air Oxygen Flow Rate 94 Fraction of Inspir ed Oxygen Hydration adequate: Yes Nausea and vomiting: No Pain level: 2 Mental status: Baseline
== END 2023-04-19 10:15 | disposition home or self-care (01) ==
PROVIDERS: PCP Family Medicine; Visit Provider Surgery
PROC: 0DJ08ZZ Inspection of Upper Intestinal Tract, Via Natural or Artificial Opening Endoscopic (ICD-10-PCS; CPT 43235; principal; 2023-04-19 09:00)
DX: K21.9 Gastro-esophageal reflux disease without esophagitis (principal); M79.7 Fibromyalgia; Z85.3 Personal history of malignant neoplasm of breast; K29.50 Unspecified chronic gastritis without bleeding
CPT/HCPCS: 36416; 43239; 82962; 88305; 88342; J2704; J7030

== ENCOUNTER 2023-05-15 09:24 | Outpatient (CLI) | payer OTHER, SELFPAY ==
[2023-05-15 10:07] LABS: D Dimer 0.35 ug/mLFEU (0-0.59)
[2023-05-15 10:08] LABS: Alanine Aminotransferase 19 U/L (0-33); Albumin Level 4.1 g/dL (3.5-5.2); Alkaline Phosphatase 89 U/L (35-105); Blood Urea Nitrogen 16 mg/dL (6-20); Calcium 9.5 mg/dL (8.5-10.5); Carbon Dioxide 27 mmol/L (22-29); Chloride 105 mmol/L (98-107); Glomerular Filtration Rate 48.4 mL/min (90-130); Glucose 80 mg/dL (65-115); Magnesium 1.8 mg/dL (1.7-2.3); Osmolality Calculated 294 mOsm/kg (285-295); Sodium 142 mmol/L (136-145); Total Bilirubin 0.2 mg/dL (0.15-1.2); Total Protein 7.1 g/dL (6.6-8.7)
[2023-05-15 10:09] LABS: Anion Gap 13.5 (5-19); Aspartate Amino Transferase 20 U/L (0-32); Potassium 3.5 mmol/L (3.5-5.1)
== END 2023-05-15 09:25 | disposition home or self-care (01) ==
PROVIDERS: PCP Family Medicine; Visit Provider Family Medicine
DX: M62.831 Muscle spasm of calf (principal); M79.605 Pain in left leg; M79.89 Other specified soft tissue disorders
CPT/HCPCS: 36415; 80053; 83735; 85378

== ENCOUNTER 2023-09-09 13:34 | Outpatient (CLI) | payer OTHER, SELFPAY ==
--- NOTE | 2023-09-09 14:07 | XRR_ITS ---
PROCEDURE INFORMATION: Exam: XR Cervical Spine Exam date and time: 09/09/2023 2:11 PM Age: 48 years old Clinical indication: Pain; Other: Arm numbness both, headache; Patient HX: HX of bilat breast cancer; Additional info: M19.90 - unspecified osteoarthritis, unspecified site TECHNIQUE: Imaging protocol: Radiologic exam of the cervical spine. Views: 2 or 3 views. COMPARISON: [place] [id number] 11/29/2022 10:40 AM FINDINGS: Bones/joints: Anterolisthesis of C3 on C4 by 1.5 mm. Generalized straightening of the cervical spine. Moderate degenerative disc disease at C6-C7. Diffuse degenerative changes of the facet joints bilaterally. No acute fracture or dislocation. Soft tissues: No significant soft tissue pathology. XR/XR cervical spine 3V* [id number] IMPRESSION: Reversal of lordosis with C3-C4 anterolisthesis and features of degenerative disc and facet disease as described above.
[2023-09-09 14:08] LABS: Basophils # 0.1 10^3/uL (0.0-0.1); Eosinophils # 0.1 10^3/uL (0.0-0.8); Hematocrit 44.3 % (36-47); Lymphocytes # 2.2 10^3/uL (0.8-4.8); Lymphocytes % 36.9 %; Mean Corpuscular HGB Conc 32.1 g/dL (30-55); Mean Corpuscular Hemoglobin 28.1 pg (27-33); Mean Corpuscular Volume 87.5 fl (85-98); Mean Platelet Volume 11.5 fL (7.4-10.4); Monocytes # 0.4 10^3/uL (0.2-0.9); Monocytes % 6.6 %; Neutrophils # 3.28 10^3/uL (1.8-7.7); Neutrophils % 54.2 %; Nucleated Red Blood Cells % 0 %; Platelet Count 180 10^3/cmm (157-399); Red Blood Count 5.06 10^6/uL (3.85-5.65); Red Cell Distribution Width 13.4 % (12.1-15.1); White Blood Count 6.05 10^3/uL (3.29-11.43)
[2023-09-09 14:24] LABS: Alanine Aminotransferase 17 U/L (0-33); Albumin Level 4.2 g/dL (3.5-5.2); Alkaline Phosphatase 84 U/L (35-105); Aspartate Amino Transferase 17 U/L (0-32); Erythrocyte Sedimentation Rate 11 mm/hr (0-15); Globulin 2.9 g/dL (1.3-4.6); Glomerular Filtration Rate 53.5 mL/min (90-130); Total Bilirubin 0.2 mg/dL (0.15-1.2); Total Protein 7.1 g/dL (6.6-8.7); Uric Acid 3.9 mg/dL (2.4-5.7)
== END 2023-09-09 13:35 | disposition home or self-care (01) ==
LOC: RAD 13:36
PROVIDERS: PCP Family Medicine; Visit Provider Internal Medicine Rheumatology
DX: M47.812 Spondylosis without myelopathy or radiculopathy, cervical region (principal); Z79.899 Other long term (current) drug therapy
CPT/HCPCS: 36415; 72040; 80076; 82565; 84550; 85025; 85651; 86140

== ENCOUNTER 2023-10-18 06:59 | Outpatient (CLI) | payer OTHER, SELFPAY ==
--- NOTE | 2023-10-18 07:15 | MRR_ITS ---
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 . . TECHNIQUE: Imaging protocol: Magnetic resonance imaging of the cervical spine without contrast. COMPARISON: CR XR cervical spine 3V* [id number] 09/09/2023 2:11 PM FINDINGS: Bones/joints: There is mild reversal of the normal C-spine lordosis. There are no fractures. There is 1.5 mm anterolisthesis C3 on C4 and 1.5 mm anterolisthesis C4 on C5. These are likely degenerative in origin. There are no focal marrow abnormalities. Spinal cord: There are abnormal signal foci within the cervical cord. The most superior 1 is located centrally and posteriorly within the cord and extends from the C2-C3 level to the top of C4 level. It measures 1.8 cm superior to inferior dimension it measures 2.5 mm transversely and it measures 2.3 mm AP dimension. The inferior focus appears to begin the C6-C7 level and extends inferiorly to the midportion T1. It measures 2.7 cm superior to inferior dimension. It measures 1.5 mm by 1.5 mm in greatest AP and transverse dimensions. Either of these may represent a syrinx.. Either of these could represent cord edema if there has been trauma. Either of these could represent transverse myelitis. Either of these could represent myelomalacic change. Either of these could represent demyelinating disorder. Either of these could represent neoplasm. Given patient's history of breast carcinoma, breast carcinoma can metastasize to the cord. Primary [employer] neoplasm cannot be excluded. C2-C3: At C2-C3, there is minor disc bulge without central or foraminal stenosis. C3-C4: At C3-C4, the disc shows early disc degeneration. There is mild disc bulge without significant central canal stenosis. There is mild bilateral foraminal stenosis. C4-C5: At C4-C5, there is early disc degeneration with mild disc bulge. There is no significant central canal stenosis. There is no significant foraminal stenosis. C5-C6: At C5-C6 there is early disc degeneration. There is no significant central or foraminal stenosis. C6-C7: At C6-C7, the disc is degenerated. There is diffuse disc bulge and spondylosis. There is ligamentum flavum buckling. There is mild central canal stenosis without cord compression C7-T1: At C7-T1, there is no significant central or foraminal stenosis. Soft tissues: See Spinal cord finding. Craniocervical junction: The cerebellar tonsils are mildly ectopic ending of proximally 4 mm below the foramen magnum. Vasculature: Expected flow voids in the vertebral arteries. MR/MR cervical spin wo con* [id number] IMPRESSION: 1. Mild reversal of normal C-spine lordosis. Minor subluxations likely degenerative in origin. No focal marrow abnormalities. No fractures. 2. Two foci abnormal cord signal as described above. Please see differential given above. Further evaluation is recommended with repeat T1 weighted images with and without contrast. 3. Mild degenerative disc disease and spondylosis. The most prominently degenerated disc is at C6-C7 where there is mild central and mild bilateral foraminal stenosis. See individual levels above for more complete description.
== END 2023-10-18 07:00 | disposition home or self-care (01) ==
LOC: RAD 06:59
PROVIDERS: PCP Family Medicine; Visit Provider Internal Medicine Rheumatology
DX: M47.812 Spondylosis without myelopathy or radiculopathy, cervical region (principal); M50.123 Cervical disc disorder at C6-C7 level with radiculopathy; M48.02 Spinal stenosis, cervical region
CPT/HCPCS: 72141

== ENCOUNTER → 2024-03-23 16:00 | Outpatient (BNVA) | payer OTHER, SELFPAY | PROVIDERS: PCP Family Medicine; Visit Provider Family Medicine | DX: R79.89 Other specified abnormal findings of blood chemistry; E03.9 Hypothyroidism, unspecified; R76.8 Other specified abnormal immunological findings in serum; M19.90 Unspecified osteoarthritis, unspecified site; E55.9 Vitamin D deficiency, unspecified | CPT/HCPCS: 80053; 80061; 82306; 82607; 82746; 84439; 84443; 85025; 86140 ==

== ENCOUNTER → 2024-06-01 13:00 | Outpatient (BNVA) | payer OTHER, SELFPAY | PROVIDERS: PCP Family Medicine; Visit Provider Family Medicine | DX: R79.89 Other specified abnormal findings of blood chemistry (principal); Z79.899 Other long term (current) drug therapy; R60.9 Edema, unspecified; E03.9 Hypothyroidism, unspecified; M10.9 Gout, unspecified; M19.90 Unspecified osteoarthritis, unspecified site; R76.8 Other specified abnormal immunological findings in serum; I10 Essential (primary) hypertension; E83.42 Hypomagnesemia; E55.9 Vitamin D deficiency, unspecified | CPT/HCPCS: 80053; 82306; 82533; 82607; 82746; 83735; 84439; 84443; 84550; 85651; 86140 ==

== ENCOUNTER → 2024-08-13 15:43 | Outpatient (BNVA) | payer SELFPAY | PROVIDERS: PCP Family Medicine; Visit Provider Emergency Medicine | DX: B34.9 Viral infection, unspecified (principal) | CPT/HCPCS: 87400 ==

== ENCOUNTER → 2024-10-20 16:00 | Outpatient (BNVA) | payer OTHER, SELFPAY | PROVIDERS: PCP Family Medicine; Visit Provider Internal Medicine Rheumatology | DX: Z79.899 Other long term (current) drug therapy (principal) | CPT/HCPCS: 36415; 80076; 82565; 85025; 85651; 86140 ==

== ENCOUNTER 2025-02-05 12:44 | Outpatient (CLI) | payer OTHER, SELFPAY ==
[2025-02-05 13:11] LABS: Hematocrit 44.5 % (36-47); Hemoglobin 14.90 g/dL (11.27-16.99); Mean Corpuscular HGB Conc 33.5 g/dL (30-55); Mean Corpuscular Hemoglobin 29.2 pg (27-33); Mean Corpuscular Volume 87.1 fl (85-98); Nucleated Red Blood Cells % 0 %; Platelet Count 230 10^3/cmm (157-399); Red Blood Count 5.11 10^6/uL (3.85-5.65); White Blood Count 6.91 10^3/uL (3.29-11.43)
[2025-02-05 13:31] LABS: Alanine Aminotransferase 15 U/L (0-33); Albumin Level 4.2 g/dL (3.5-5.2); Alkaline Phosphatase 72 U/L (35-105); Aspartate Amino Transferase 17 U/L (0-32); Globulin 2.9 g/dL (1.3-4.6); Total Protein 7.1 g/dL (6.6-8.7)
== END 2025-02-05 12:45 | disposition home or self-care (01) ==
PROVIDERS: PCP Family Medicine; Visit Provider Internal Medicine Rheumatology
DX: Z79.899 Other long term (current) drug therapy (principal)
CPT/HCPCS: 36415; 80076; 82565; 85025; 85651; 86140

== ENCOUNTER 2025-02-25 10:50 | Outpatient (CLI) | payer OTHER, SELFPAY ==
[2025-02-25 11:22] LABS: Hematocrit 40.1 % (36-47); Hemoglobin 13.40 g/dL (11.27-16.99); Mean Corpuscular HGB Conc 33.4 g/dL (30-55); Mean Corpuscular Hemoglobin 29.8 pg (27-33); Mean Corpuscular Volume 89.3 fl (85-98); Nucleated Red Blood Cells % 0 %; Platelet Count 183 10^3/cmm (157-399); Red Blood Count 4.49 10^6/uL (3.85-5.65); White Blood Count 5.33 10^3/uL (3.29-11.43)
[2025-02-25 11:58] LABS: Hepatitis B Surface Antigen Non-Reactive (Nonreactive)
[2025-02-25 12:01] LABS: Alanine Aminotransferase 14 U/L (0-33); Albumin Level 4.2 g/dL (3.5-5.2); Alkaline Phosphatase 57 U/L (35-105); Aspartate Amino Transferase 17 U/L (0-32); Blood Urea Nitrogen 16 mg/dL (6-20); Globulin 2.3 g/dL (1.3-4.6); Thyroid Stimulating Hormone 0.09 uIU/mL (0.27-4.20); Total Protein 6.5 g/dL (6.6-8.7)
[2025-02-25 12:53] LABS: Free T4 Free Thyroxine 1.49 ng/dL (0.82-1.77)
== END 2025-02-25 10:51 | disposition home or self-care (01) ==
PROVIDERS: PCP Family Medicine; Visit Provider Internal Medicine Rheumatology
DX: Z79.899 Other long term (current) drug therapy (principal); E03.9 Hypothyroidism, unspecified; R79.89 Other specified abnormal findings of blood chemistry; I12.9 Hypertensive chronic kidney disease with stage 1 through stage 4 chronic kidney disease, or unspecified chronic kidney disease; N18.9 Chronic kidney disease, unspecified
CPT/HCPCS: 36415; 80076; 82565; 84439; 84443; 84520; 85025; 85651; 86140; 86480; 87340

== ENCOUNTER 2025-03-02 15:00 | Outpatient (CLI) | payer OTHER, SELFPAY ==
--- NOTE | 2025-03-02 15:30 | US_ITS ---
WS: [id number] RENAL ULTRASOUND HISTORY: N18.9 - Chronic kidney disease, unspecified COMPARISON: CT 11/13/2022 TECHNIQUE: 2-D and color Doppler imaging of the kidney submitted. Right kidney: 9.7 cm x 4.9 cm x 5.2 cm. Cortex: 1.4 cm Poorly visualized kidney. No mass or hydronephrosis. Left kidney: 9.2 cm x 4.7 cm x 5.3 cm. Cortex: 1.4 cm Normal echogenicity with no hydronephrosis or mass. Aorta: Normal. Urinary Bladder: Minimally distended. US/US renal BI* [id number] IMPRESSION: 1. Normal size kidneys. No hydronephrosis. 2. No mass.
== END 2025-03-02 15:01 | disposition home or self-care (01) ==
PROVIDERS: PCP Family Medicine; Visit Provider Family Medicine
DX: N18.9 Chronic kidney disease, unspecified (principal); R79.89 Other specified abnormal findings of blood chemistry
CPT/HCPCS: 76770

== ENCOUNTER 2025-06-17 08:23 | Outpatient (CLI) | payer OTHER, SELFPAY ==
[2025-06-17 09:38] LABS: Blood Urea Nitrogen 14 mg/dL (6-20); Thyroid Stimulating Hormone 5.86 uIU/mL (0.27-4.20)
[2025-06-17 16:19] LABS: Free T4 Free Thyroxine 0.85 ng/dL (0.82-1.77)
== END 2025-06-17 08:24 | disposition home or self-care (01) ==
PROVIDERS: PCP Family Medicine; Visit Provider Family Medicine
DX: E03.9 Hypothyroidism, unspecified (principal); Z79.899 Other long term (current) drug therapy
CPT/HCPCS: 36415; 82565; 84439; 84443; 84520